=== PATIENT | female | born 1945 | race Caucasian/White ===

== ENCOUNTER → 2018-05-16 13:06 | Outpatient (CLI) | payer MEDICARE, BC, SELFPAY | PROVIDERS: Family Provider Internal Medicine; PCP Internal Medicine; Visit Provider Internal Medicine | DX: G47.10 Hypersomnia, unspecified (principal); R06.81 Apnea, not elsewhere classified; R06.83 Snoring | CPT/HCPCS: 95810 ==

== ENCOUNTER → 2018-06-28 21:02 | Outpatient (CLI) | payer MEDICARE, BC, SELFPAY | PROVIDERS: Family Provider Internal Medicine; PCP Internal Medicine; Visit Provider Internal Medicine | DX: G47.33 Obstructive sleep apnea (adult) (pediatric) (principal) | CPT/HCPCS: 95811 ==

== ENCOUNTER → 2019-01-16 09:55 | Outpatient (CLI) | payer MEDICARE, BC, SELFPAY ==
--- NOTE | 2019-01-16 14:34 | PFTCOMP ---
COMPLETE PULMONARY FUNCTION TEST INTERPRETATION Brief HPI: Patient is a 73 year old female, currently under the care of Dr. Sutton, who presents to [facility] for complete pulmonary function tests secondary to diagnosis of asthma. Respiratory therapist reports good effort and reproducible results. Interpretation: Forced expiration spirometry shows no large airways obstructive ventilatory defect with an FEV1 of 89% predicted. There is no significant bronchodilator response by strict ATS criteria. Spirograms are of good quality and plateau normally. The respiratory flow volume loop shows a normal pattern. Lung volumes by body plethysmography show a normal total lung capacity at 5.06 L, 97% predicted. All other lung volumes are within normal limits. Diffusion capacity by carbon monoxide is normal at 85% predicted. The airway resistance is elevated. No previous pulmonary function tests were available for review. Impression: These pulmonary function tests are within normal limits.
== END ==
PROVIDERS: Family Provider Internal Medicine; PCP Internal Medicine; Referring Provider Allergy & Immunology; Visit Provider Allergy & Immunology
DX: J45.40 Moderate persistent asthma, uncomplicated (principal)
CPT/HCPCS: 94060; 94726; 94729

== ENCOUNTER → 2020-02-05 13:27 | Outpatient (CLI) | payer MEDICARE, BC, SELFPAY | PROVIDERS: PCP Internal Medicine; Referring Provider Dermatology; Visit Provider Dermatology | DX: L71.8 Other rosacea (principal); L20.89 Other atopic dermatitis | CPT/HCPCS: 87070; 87077; 87186; 87205 ==

== ENCOUNTER → 2021-09-30 13:03 | Outpatient (CLI) | payer MEDICARE, BC, SELFPAY ==
[2021-09-30 14:19] LABS: T4 Free Direct 0.82 ng/dL (0.76-1.46); Thyroid Stim Hormone (TSH) 2.31 uIU/mL (0.358-3.74)
[2021-10-05 15:20] LABS: Acetylcholine Receptor Binding < 0.03 nmol/L (0.00-0.24)
== END ==
PROVIDERS: PCP Internal Medicine; Referring Provider Ophthalmology; Visit Provider Ophthalmology
DX: H50.00 Unspecified esotropia (principal); H02.402 Unspecified ptosis of left eyelid; H10.45 Other chronic allergic conjunctivitis; H43.813 Vitreous degeneration, bilateral; Z96.1 Presence of intraocular lens
CPT/HCPCS: 36415; 84238; 84439; 84443

== ENCOUNTER 2022-06-23 10:20 | Inpatient (IN) | payer MEDICARE, BC, SELFPAY ==
[2022-06-23 10:21] VITALS: BP 168/116; PULSE 67; RESP 14; TEMP 36.6; O2SAT 98; BMI 26.8
--- NOTE | 2022-06-23 10:30 | US_ITS ---
STUDY: ABDOMINAL ULTRASOUND - RIGHT UPPER QUADRANT REASON FOR VISIT: Female, 76 years old . Right upper quadrant pain. TECHNIQUE: Ultrasound evaluation of the right upper quadrant was performed with real-time and static merrill-scale imaging. TECHNICAL QUALITY: Adequate. COMPARISON: None. FINDINGS: Liver: The liver measures 16.4 cm. There is normal echogenicity of the liver. The bile ducts are within normal limits. There is hepatic color flow. The direction of portal flow is hepatopetal. There is no demonstrated mass lesion. Gallbladder: There is a mildly distended gallbladder. The gallbladder wall measures 3 mm. There is a positive sonographic Carroll''s sign. There is no pericholecystic fluid. There are multiple echogenic structures within the gallbladder, consistent with multiple gallstones. Sludge is seen within the gallbladder lumen. Common Bile Duct (C.B.D.): The common bile duct measures 6 mm. Pancreas: Normal size of the head, body and tail of the pancreas. There is normal echogenicity of the pancreas. There is no demonstrated pancreatic mass or cyst. Right Kidney: Normal size of the right kidney. The right kidney measures 13.7 cm x 5.5 cm x 4.7 cm. Normal renal cortex. The right cortex measures 1.4 cm. There is a 1.1 cm x 1 cm x 0.9 cm cyst in the midpole. There is no right hydronephrosis. US/Gallbladder IMPRESSION: Mildly dilated gallbladder containing multiple gallstones and sludge. Electronically Signed: Bird Robin MD at 11:38 EDT ,
--- NOTE | 2022-06-23 10:32 | ED.VIS.GI ---
HPI HPI - GI History of Present Illness Chief Complaint: Abd Pain Informant: patient Abdominal Pain/Flank Pain Onset: Today Narrative Narrative: Right upper abdominal pain waking her at 2:30 AM. Nausea without vomiting. No fevers. No urinary symptoms. Patient ate pasta last night for dinner. Did have loose stool afterwards nonbloody. She states is intermittent right upper quadrant pain, she gets diarrhea with certain foods in the past. Has not had her gallbladder evaluated previously. History of tubal ligation. History of duodenal ulcer on Prilosec. This was years ago. Pain is 5-6 out of 10. Took Tylenol with no relief. Tried drinking Benadryl with no relief. Drink tea also no worsening relieving symptoms. [facility] Medical History (Updated 06/23/22 @ 16:[address] Herminio Hernandez DO) Acne rosacea Allergic rhinitis Asthma Daytime sleepiness Depression Dysthymic disorder External hemorrhoids GERD (gastroesophageal reflux disease) Internal hemorrhoids Menieres disease Sleep apnea Snoring Vitamin D deficiency Witnessed episode of apnea Home Medications albuterol sulfate 90 mcg/actuation aerosol inhaler (Proventil HFA) 2 puff inhalation Q4H PRN SOB 06/15/18 [History Last Taken Unknown] azelastine 137 mcg (0.1 %) nasal spray aerosol 1 spray intranasal BID 06/15/18 [History Last Taken Unknown] bupropion HCl 150 mg tablet,12 hr sustained-release (Wellbutrin SR) 150 mg PO QDAY 06/15/18 [History Last Taken Unknown] clindamycin phosphate 1 % topical gel, once daily (Clindagel) 1 applic topical BID 06/15/18 [History Last Taken Unknown] clobetasol 0.05 % topical cream (Temovate) 1 applic topical BID PRN Itching 06/15/18 [History Last Taken Unknown] conjugated estrogens 0.625 mg/gram vaginal cream (Premarin) vaginal .QOD 06/15/18 [History Last Taken Unknown] dextromethorphan polistirex 30 mg/5 mL oral susp ext.release 12hr (Delsym 12 hour) 10 ml PO Q12H 06/15/18 [History Last Taken Unknown] diclofenac sodium 1 % topical gel (Voltaren) 2 g topical .qid PRN Itching 06/15/18 [History Last Taken Unknown] epinephrine 0.3 mg/0.3 mL injection, auto-injector (EpiPen) 0.3 mg IM Q10-15M PRN Allergic Reaction 06/15/18 [History Last Taken Unknown] fexofenadine 180 mg tablet (Vivi Allergy) 180 mg PO QDAY 06/15/18 [History Last Taken Unknown] fluoxetine 20 mg capsule (Prozac) 40 mg PO QDAY 06/15/18 [History Last Taken Unknown] fluticasone propionate 50 mcg/actuation nasal spray,suspension (Flonase Allergy Relief) 2 spray intranasal QDAY 06/15/18 [History Last Taken Unknown] meclizine 12.5 mg tablet 12.5 mg PO TID PRN Dizziness 06/15/18 [History Last Taken Unknown] mometasone-formoterol HFA 100 mcg-5 mcg/actuation aerosol inhaler (Dulera) 2 puff inhalation Q12H 06/15/18 [History Last Taken Unknown] omeprazole 20 mg capsule,delayed release 20 mg PO QDAY 06/15/18 [History Last Taken Unknown] phenazopyridine 200 mg tablet (Pyridium) 200 mg PO TID PRN URINARY SYMPTOMS 06/15/18 [History Last Taken Unknown] promethazine 6.25 mg/5 mL oral syrup 6.25 mg PO Q6H PRN Nausea 06/15/18 [History Last Taken Unknown] trazodone 50 mg tablet 50 mg PO QHS 06/15/18 [History Last Taken Unknown] triamterene 75 mg-hydrochlorothiazide 50 mg tablet (Maxzide) 1 tab PO QDAY 06/15/18 [History Last Taken Unknown] olopatadine 0.1 % eye drops 1 drp ophthalmic (eye) BID 06/20/18 [History Last Taken Unknown] mirabegron 50 mg tablet,extended release 24 hr (Myrbetriq) 50 mg PO DAILY 06/23/22 [History Last Taken Unknown] Allergy/AdvReac Type Severity Reaction Status Date / Time seasonal allergies Allergy Mild Sneezing Uncoded 06/23/22 10:22 tobacco Allergy Mild burning Uncoded 06/23/22 10:22 lungs Family History Other No family history of disorders Surgical History benign breast lump, impacted milk gland H/O tubal ligation Social History household members: spouse housing: house current occupational status: retired pets and animals: Yes pets and animals: cat(s) Smoking Status: Former smoker quit date: 11/28/71 pack-years: 8 second hand exposure: No alcohol intake: current substance use type: other ROS ROS ED Constitutional Constitutional ED: Denies chills, fever(s) or sweats Eyes Eyes: Denies change in vision ENT ENT ED: Denies dysphagia or sore throat Cardiovascular Cardiovascular: Denies chest pain, leg edema, palpitations or racing heartbeat Respiratory/Chest Respiratory/Chest: Denies cough, dyspnea or dyspnea on exertion Gastrointestinal Gastrointestinal: Reports abdominal pain, diarrhea and nausea; Denies vomiting Genitourinary Genitourinary ED: Denies dysuria, hematuria or urinary frequency Musculoskeletal Musculoskeletal: Denies back pain, extremity pain or neck pain Integumentary Denies rash or wounds Neurologic Neurologic: Denies headache(s), paresthesias or weakness EXAM Physical Exam Const Vital Signs: 06/23/22 10:21 06/23/22 12:32 Temperature 97.8 F 97.6 F L Temperature Source Temporal Oral Pulse Rate 67 88 Respiratory Rate 14 16 Blood Pressure 168/116 H 139/84 H Blood Pressure Mean 133 102 Pulse Ox 98 97 Oxygen Delivery Method Room Air Room Air Positive well nourished and well developed General Appearance ED: well developed and NAD HEENT Reports moist mucous membranes normocephalic and atraumatic Eyes PERRL, EOMs intact bilaterally and conjunctivae normal General Eye ED: Yes normal appearance of both eyes Neck no lymphadenopathy and supple General: Negative for tenderness Chest Wall Chest: Negative for tenderness Resp normal respiratory effort and normal air movement Effort and Inspection: symmetric chest movement; Negative for respiratory distress Cardio regular rate, regular rhythm and no murmurs Peripheral Pulses: pulses 2+ throughout GI normal to inspection, nondistended, normoactive bowel sounds GI Narrative: Tender deep palpation right upper quadrant, there is no rash, is no guarding or rebound. Negative McBurney's tenderness. Palpation: Negative for guarding or rebound tenderness present Back/Spine no CVA tenderness and no thoracic nor lumbar tenderness Extremity normal to inspection General Extremety ED: Negative for edema or tenderness General Extremity: Negative for edema Neuro oriented x3 and no sensory deficits noted Sensorium / Orientation: awake and alert Skin no rashes or lesions noted and no wounds MDM MDM MDM Narrative Medical decision making narrative: AbdominalNontoxic and tenderness tenderness right upper quadrant without guarding. Labs urine and right upper quadrant ultrasound be ordered. She will be treated with Zofran and morphine. 1100: Abdominal labs all normal with normal lipase and LFTs white count 7.0. Urine with 25 leukocytes. She has no symptoms. Awaiting ultrasound. Ultrasound results notes mild distended gallbladder with sludge and stones. Reevaluation symptoms probably have still there down to 5. Her history has been having intermittent colic symptoms worsening overnight. I discussed with on-call surgeon Dr. Nath, will admit to his service for inpatient management and likely cholecystectomy. This discussed with the patient who understands and agrees with plan. Lab Data Attestation: I reviewed the patient's lab results. Labs: Laboratory Results - last 24 hr 06/23/22 06/23/22 06/23/22 10:31 10:31 10:38 WBC 7.0 RBC 4.68 Hgb 15.5 H Hct 45.2 MCV 96.6 MCH 33.1 H MCHC 34.3 RDW Std Deviation 49.2 H RDW Coeff of Yovani 13.8 Plt Count 322 MPV 10.2 Immature Gran % (Auto) 0.300 Neut % (Auto) 73.2 H Lymph % (Auto) 18.2 L Oliver % (Auto) 6.4 Eos % (Auto) 1.0 Baso % (Auto) 0.9 Absolute Neuts (auto) 5.2 Absolute Lymphs (auto) 1.28 Nucleated RBC % 0 Sodium 136 Potassium 3.6 Chloride 100 Carbon Dioxide 32.0 Anion Gap 4 L BUN 12 Creatinine 0.75 Estim Creat Clear Calc 46.20 Est GFR (MDRD) Af Amer 97 Est GFR (MDRD) Non-Af 81 BUN/Creatinine Ratio 16.1 Glucose 111 H Calcium 9.2 Total Bilirubin 0.80 Direct Bilirubin 0.23 AST 22 ALT 35 Alkaline Phosphatase 68 Total Protein 7.7 Albumin 4.1 Globulin 3.6 Lipase 65 L Urine Color Yellow Urine Clarity Sl. Cloudy Urine pH 7.0 Ur Specific Russell 1.010 Urine Protein Negative Urine Glucose (UA) Normal Urine Ketones Negative Urine Occult Blood Negative Urine Nitrite Negative Urine Bilirubin Negative Urine Urobilinogen Normal Ur Leukocyte Esterase 25 H Urine RBC 0 SEEN Urine WBC 0-5 SEEN Ur Squamous Epith Cells 0-5 SEEN Urine Bacteria 0 SEEN Urine Mucus 0 SEEN Radiography Diagnostic Testing: Clinical Impression(s) from Imaging Studies Gallbladder Ultrasound 06/23/22 10:30 IMPRESSION: Mildly dilated gallbladder containing multiple gallstones and sludge. Electronically Signed: Bird Robin MD at 11:38 EDT , Discharge Plan Dx/Rx/DC Orders Clinical Impression: Acute cholecystitis, Biliary colic, Cholelithiasis, Sludge in gallbladder, Abdominal pain Disposition Disposition: Acute Care [facility] Discharge Date/Time: 06/23/22 13:31
[2022-06-23 10:43] LABS: Absolute Lymphocyte Count 1.28 X10^3/uL (0.83-4.51); Absolute Neutrophil Count 5.2 X10^3/uL (2.0-7.7); Basophil# 0.06 X10^3/uL; Basophil% 0.9 % (0-1); Eosinophil# 0.07 X10^3/uL; Hematocrit 45.2 % (37-47); Hemoglobin 15.5 g/dL (12.0-15.0); Lymphocyte # 1.28 X10^3/ul (0.83-4.51); Lymphocyte % 18.2 % (19-41); Mean Corp Hgb Conc 34.3 g/dL (32-36); Mean Corpuscular Hgb 33.1 pg (27.0-32.0); Mean Corpuscular Volume 96.6 fL (81-99); Mean Platelet Vol. 10.2 fl (6.2-12.0); Monocyte# 0.45 X10^3/uL; Monocyte% 6.4 % (0-10); NRBC Flagged by Analyzer 0 % (0-5); Neutrophil # 5.16 X10^3/uL (2.7-7.7); Neutrophil % 73.2 % (47-70); Platelet Count 322 K/mm3 (150-450); RBC Distribution Width CV 13.8 % (11.6-14.6); RBC Distribution Width SD 49.2 fl (35.1-43.9); Red Blood Count 4.68 M/mm3 (4.2-5.4)
[2022-06-23 10:43] LABS: Bacteria 0 SEEN /hpf (None Seen); Mucous, Urine 0 SEEN /hpf (<or=2+); Red Blood Cells-Urine 0 SEEN /hpf (0-5)
[2022-06-23 10:44] LABS: Color, Urine Yellow (Yellow); Glucose, Dipstick Normal (Normal); Ketone-Dipstick Negative (Negative); Leukocyte Esterase-Dipstick 25 /ul (Negative); Nitrite-Dipstick Negative (Negative); Occult Blood-Urine Negative /ul (Negative); Protein-Dipstick Negative (Negative); Urine Bilirubin Dipstick Negative (Negative); Urine Clarity Sl. Cloudy (Clear); Urine Urobilinogen Normal (Normal)
[2022-06-23] MEDS: Ondansetron 4 MG/2 ML Vial IV ×3 (10:46→22:12)
[2022-06-23] MEDS: Morphine 2 MG/ML Syringe IV ×3 (10:46→18:30)
[2022-06-23] MEDS: 0.9% Normal Saline 1,000 ML 125 ML IV (10:48)
[2022-06-23 10:51] LABS: Squamous Epithelial Cells - UA 0-5 SEEN /hpf (5-10); White Blood Cells 0-5 SEEN /hpf (0-5)
[2022-06-23 10:59] LABS: AST(SGOT) 22 U/L (15-37); Alanine Aminotransfer ALT/SGPT 35 U/L (13-56); Albumin, Serum 4.1 g/dL (3.2-5.0); Alkaline Phosphatase 68 U/L (45-117); Anion Gap 4 (5-15); BUN 12 mg/dL (7-18); BUN/Creat Ratio 16.1 RATIO (10-20); Bilirubin, Direct 0.23 mg/dL (0.00-0.30); Calcium,Total 9.2 mg/dL (8.5-10.1); Chloride 100 mmol/L (98-107); Creatinine, Serum 0.75 mg/dL (0.55-1.02); EST Glomerular Filtration Rate 81 mL/min (>60); Est Glom Filt Rate - Afr Amer 97 mL/min (>60); Globulin 3.6 g/dL (2.2-4.2); Glucose 111 mg/dL (74-106); Lipase 65 U/L (73-393); Potassium 3.6 mmol/L (3.5-5.1); Protein, Total 7.7 g/dL (6.4-8.2); Sodium Level 136 mmol/L (136-145)
[2022-06-23 12:32] VITALS: BP 139/84; PULSE 88; RESP 16; TEMP 36.4; O2SAT 97
--- NOTE | 2022-06-23 12:56 | NURSING ---
305 MED SURG [facility] BILIARY COLIC, CHOLETHIASIS W SLUDGE, RUQ PAIN
--- NOTE | 2022-06-23 13:05 | EKGRS_ITS ---
Test Reason : RYTHM CHANGE Blood Pressure : / mmHG Vent. Rate : 065 BPM Atrial Rate : 065 BPM P-R Int : 162 ms QRS Dur : 086 ms QT Int : 426 ms P-R-T Axes : -19 -13 012 degrees QTc Int : 443 ms Sinus rhythm with frequent Premature ventricular complexes Otherwise normal ECG When compared with ECG of 24-JUN-2022 15:11, MANUAL COMPARISON REQUIRED, DATA IS UNCONFIRMED Confirmed by JAZZ EDMONDSON, YENNY ([id number]), material expeditor GEOVANNA FLORES ([id number]) on 06/28/2022 11:34:24 AM Referred By: GREGG Confirmed By:LEO SCHULZ MD
--- NOTE | 2022-06-23 13:11 | HP.PCM_ITS ---
HPI - General General Date of Admission: 06/23/22 Date of Service: 06/23/22 Chief Complaint: Right upper quadrant abdominal pain HPI Narrative DEIDRE STONE, is a 76 F who presents with worsening abdominal pain x 1 day. Patient states she has had intermittent RUQ abdominal discomfort for 4-5 years. She denies ever having a gallbladder work up. She notes a few months ago her stools turned white. Patient notes last night for dinner she had pasta with eggs and parmesan cheese. She also had a salad with dressing around 6 pm. She noted about 45 minutes to an 1 hour later she had diarrhea after eating. She noted tenderness of the right upper quadrant and thought this was gas pain. She went to bed and was woke up at 02:20 AM with severe right upper quadrant abdominal pain radiating into her back. She noted some nausea. She denies vomiting. She notes for the last year she has had a 25 pound intentional weight loss which has improved her symptoms. She notes a previous right inguinal hernia repair without mesh and tubal ligation in the 's. She denies any cardiac history. No previous myocardial infarction, stroke, blood clots. She notes a history of sleep apnea and uses CPAP machine. She also has a history of asthma. She follows with Dr. Sutton. In the ED, a RUQ u/s was performed demonstrating mildly dilated gallbladder containing multiple gallstones and sludge. Positive Carroll's sign. No pericholecystic fluid. WBC 7.0, Hgb 15.5, Hct 45.2 and platelets 322. CMP unremarkable. [facility] Medical History (Updated 06/23/22 @ 13:30 by Aura HOFFMAN PAMaryellenC) Acne rosacea Allergic rhinitis Asthma Daytime sleepiness Depression Dysthymic disorder External hemorrhoids GERD (gastroesophageal reflux disease) Internal hemorrhoids Menieres disease Sleep apnea Snoring Vitamin D deficiency Witnessed episode of apnea Home Medications albuterol sulfate 90 mcg/actuation aerosol inhaler (Proventil HFA) 2 puff inhalation Q4H PRN SOB 06/15/18 [History Last Taken Unknown] azelastine 137 mcg (0.1 %) nasal spray aerosol 1 spray intranasal BID 06/15/18 [History Last Taken Unknown] bupropion HCl 150 mg tablet,12 hr sustained-release (Wellbutrin SR) 150 mg PO QDAY 06/15/18 [History Last Taken Unknown] clindamycin phosphate 1 % topical gel, once daily (Clindagel) 1 applic topical BID 06/15/18 [History Last Taken Unknown] clobetasol 0.05 % topical cream (Temovate) 1 applic topical BID PRN Itching 06/15/18 [History Last Taken Unknown] conjugated estrogens 0.625 mg/gram vaginal cream (Premarin) vaginal .QOD 06/15/18 [History Last Taken Unknown] dextromethorphan polistirex 30 mg/5 mL oral susp ext.release 12hr (Delsym 12 hour) 10 ml PO Q12H 06/15/18 [History Last Taken Unknown] diclofenac sodium 1 % topical gel (Voltaren) 2 g topical .qid PRN Itching 06/15/18 [History Last Taken Unknown] epinephrine 0.3 mg/0.3 mL injection, auto-injector (EpiPen) 0.3 mg IM Q10-15M PRN Allergic Reaction 06/15/18 [History Last Taken Unknown] fexofenadine 180 mg tablet (Vivi Allergy) 180 mg PO QDAY 06/15/18 [History Last Taken Unknown] fluoxetine 20 mg capsule (Prozac) 40 mg PO QDAY 06/15/18 [History Last Taken Unknown] fluticasone propionate 50 mcg/actuation nasal spray,suspension (Flonase Allergy Relief) 2 spray intranasal QDAY 06/15/18 [History Last Taken Unknown] meclizine 12.5 mg tablet 12.5 mg PO TID PRN Dizziness 06/15/18 [History Last Taken Unknown] mometasone-formoterol HFA 100 mcg-5 mcg/actuation aerosol inhaler (Dulera) 2 puff inhalation Q12H 06/15/18 [History Last Taken Unknown] omeprazole 20 mg capsule,delayed release 20 mg PO QDAY 06/15/18 [History Last Taken Unknown] phenazopyridine 200 mg tablet (Pyridium) 200 mg PO TID PRN URINARY SYMPTOMS 06/15/18 [History Last Taken Unknown] promethazine 6.25 mg/5 mL oral syrup 6.25 mg PO Q6H PRN Nausea 06/15/18 [History Last Taken Unknown] trazodone 50 mg tablet 50 mg PO QHS 06/15/18 [History Last Taken Unknown] triamterene 75 mg-hydrochlorothiazide 50 mg tablet (Maxzide) 1 tab PO QDAY 06/15/18 [History Last Taken Unknown] olopatadine 0.1 % eye drops 1 drp ophthalmic (eye) BID 06/20/18 [History Last Taken Unknown] mirabegron 50 mg tablet,extended release 24 hr (Myrbetriq) 50 mg PO DAILY 06/23/22 [History Last Taken Unknown] Allergy/AdvReac Type Severity Reaction Status Date / Time seasonal allergies Allergy Mild Sneezing Uncoded 06/23/22 10:22 tobacco Allergy Mild burning Uncoded 06/23/22 10:22 lungs Family History Other No family history of disorders Surgical History benign breast lump, impacted milk gland H/O tubal ligation Social History household members: spouse housing: house current occupational status: retired pets and animals: Yes pets and animals: cat(s) Smoking Status: Former smoker quit date: 11/28/71 pack-years: 8 second hand exposure: No alcohol intake: current substance use type: other ROS Constitutional Constitutional: Reports systems reviewed and no addt'l complaints, except as documented Eyes Eyes: Reports systems reviewed and no addt'l complaints, except as documented ENT HEENT: Reports systems reviewed and no addt'l complaints, except as documented Cardiovascular Cardiovascular: Reports systems reviewed and no addt'l complaints, except as documented Respiratory/Chest Respiratory/Chest: Reports systems reviewed and no addt'l complaints, except as documented Gastrointestinal Gastrointestinal: Reports systems reviewed and no addt'l complaints, except as documented Genitourinary Genitourinary: Reports systems reviewed and no addt'l complaints, except as documented Musculoskeletal Musculoskeletal: Reports systems reviewed and no addt'l complaints, except as documented Integumentary Integumentary: Reports systems reviewed and no addt'l complaints, except as documented Neurologic Neurologic: Reports systems reviewed and no addt'l complaints, except as documented Psychiatric Psychiatric: Reports systems reviewed and no addt'l complaints, except as documented Endocrine Endocrinology: Reports systems reviewed and no addt'l complaints, except as documented Hematologic/Lymphatic Hematologic/Lymphatic: Reports systems reviewed and no addt'l complaints, except as documented Allergic/Immunologic Allergic/Immunologic: Reports systems reviewed and no addt'l complaints, except as documented Vital Signs Vital Signs Vital Signs: 06/23/22 10:21 06/23/22 12:32 Temperature 97.8 F 97.6 F L Temperature Source Temporal Oral Pulse Rate 67 88 Respiratory Rate 14 16 Blood Pressure 168/116 H 139/84 H Blood Pressure Mean 133 102 Pulse Ox 98 97 Oxygen Delivery Method Room Air Room Air Weight Weight: 166 lb Body Mass Index (BMI) 26.8 Physical Exam Const alert, oriented x3 and no apparent distress HEENT normocephalic Eyes PERRL Neck full ROM Lymph Lymphatic: no lymphadenopathy noted Resp normal respiratory effort and normal air movement Effort and Inspection: able to speak in complete sentences Cardio regular rate and regular rhythm Cardio Narrative: Occasional PVC auscultated GI soft to palpation Inspection: central obesity Auscultation: hypoactive bowel sounds Palpation: soft, tender RUQ and Carroll's sign and guarding RUQ no CVA tenderness Back/Spine no CVA tenderness Extremity normal to inspection Skin no rashes or lesions noted Neuro no focal motor deficits and no sensory deficits noted Psych mental status grossly normal and thought process normal Results Lab / Micro Data Result Diagrams: 06/23/22 10:31 06/23/22 10:31 Labs: Laboratory Results - last 24 hr 06/23/22 10:31: Sodium 136, Potassium 3.6, Chloride 100, Carbon Dioxide 32.0, Anion Gap 4 L, BUN 12, Creatinine 0.75, Estim Creat Clear Calc 46.20, Est GFR (MDRD) Af Amer 97, Est GFR (MDRD) Non-Af 81, BUN/Creatinine Ratio 16.1, Glucose 111 H, Calcium 9.2, Total Bilirubin 0.80, Direct Bilirubin 0.23, AST 22, ALT 35, Alkaline Phosphatase 68, Total Protein 7.7, Albumin 4.1, Globulin 3.6, Lipase 65 L 06/23/22 10:31: WBC 7.0, RBC 4.68, Hgb 15.5 H, Hct 45.2, MCV 96.6, MCH 33.1 H, MCHC 34.3, RDW Std Deviation 49.2 H, RDW Coeff of Yovani 13.8, Plt Count 322, MPV 10.2, Immature Gran % (Auto) 0.300, Neut % (Auto) 73.2 H, Lymph % (Auto) 18.2 L, [place] % (Auto) 6.4, Eos % (Auto) 1.0, Baso % (Auto) 0.9, Absolute Neuts (auto) 5.2, Absolute Lymphs (auto) 1.28, Nucleated RBC % 0 06/23/22 10:38: Urine Color Yellow, Urine Clarity Sl. Cloudy, Urine pH 7.0, Ur Specific [place] 1.010, Urine Protein Negative, Urine Glucose (UA) Normal, Urine Ketones Negative, Urine Occult Blood Negative, Urine Nitrite Negative, Urine Bilirubin Negative, Urine Urobilinogen Normal, Ur Leukocyte Esterase 25 H, Urine RBC 0 SEEN, Urine WBC 0-5 SEEN, Ur Squamous Epith Cells 0-5 SEEN, Urine Bacteria 0 SEEN, Urine Mucus 0 SEEN Radiology Impression Gallbladder Ultrasound 06/23/22 10:30 IMPRESSION: Mildly dilated gallbladder containing multiple gallstones and sludge. Electronically Signed: Bird Robin MD at 11:38 EDT , Assessment & Plan Assessment/Plan (1) Acute cholecystitis: PLAN: I am seeing this patient in conjunction with Dr. Nath. He will independently evaluate this patient. Plan to admit patient to med/surg floor. Plan to start clear liquids, IV antibiotics and continue IV fluids. NPO after midnight. Obtain EKG pre-op. Dr. Nath will plan to perform a laparoscopic cholecystectomy with IOC tomorrow, 06/24. Procedure details, risks and benefits have been explained to the patient. Patient's daughter is Thor, charge nurse on PCU. Patient, and daughter have had the opportunity to ask and have questions answered. Patient verbally understands and agrees with the proposed plan. Thank you for allowing us to participate in this patient's care. Charges/Coding Visit Charges Inpatient E&M: 36194 Init Hosp L2
[2022-06-23 13:40] VITALS: BP 146/80; PULSE 58; RESP 16; TEMP 36.7; O2SAT 97
[2022-06-23 13:51] VITALS: BMI 28.0
[2022-06-23] MEDS: 0.9% Normal Saline 1,000 ML 100 ML IV (14:33)
[2022-06-23] MEDS: oxyCODONE 5 MG Tablet PO (20:15)
[2022-06-23 20:32] VITALS: BP 132/74; PULSE 62; RESP 14; TEMP 36.7; O2SAT 99
[2022-06-23] MEDS: traZODone 50 MG Tablet PO (22:02)
[2022-06-24] VITALS (13 sets, daily range): BP systolic 118–155; BP diastolic 58–80; PULSE 57–77; RESP 12–18; TEMP 36.5–37.6; O2SAT 93–97
[2022-06-24] MEDS: 0.9% Normal Saline 1,000 ML 100 ML IV ×2 (00:08→10:26)
[2022-06-24] MEDS: oxyCODONE 5 MG Tablet PO ×3 (00:10→21:59)
[2022-06-24 06:46] LABS: Absolute Lymphocyte Count 1.12 X10^3/uL (0.83-4.51); Absolute Neutrophil Count 4.3 X10^3/uL (2.0-7.7); Basophil# 0.04 X10^3/uL; Basophil% 0.6 % (0-1); Eosinophil# 0.14 X10^3/uL; Eosinophils% 2.2 % (0-5); Hemoglobin 13.7 g/dL (12.0-15.0); Lymphocyte # 1.12 X10^3/ul (0.83-4.51); Mean Corp Hgb Conc 34.3 g/dL (32-36); Mean Corpuscular Hgb 32.5 pg (27.0-32.0); Mean Corpuscular Volume 94.8 fL (81-99); Mean Platelet Vol. 10.1 fl (6.2-12.0); Monocyte# 0.57 X10^3/uL; Monocyte% 9.1 % (0-10); NRBC Flagged by Analyzer 0 % (0-5); Neutrophil # 4.34 X10^3/uL (2.7-7.7); Neutrophil % 69.8 % (47-70); Platelet Count 281 K/mm3 (150-450); RBC Distribution Width CV 13.6 % (11.6-14.6); RBC Distribution Width SD 47.5 fl (35.1-43.9); Red Blood Count 4.22 M/mm3 (4.2-5.4); White Blood Count 6.2 K/mm3 (4.4-11.0)
[2022-06-24] MEDS: Budesonide Respules 0.5 MG/2 ML AMPUL.NEB. INHALATION ×2 (07:06→19:38)
[2022-06-24 07:30] LABS: AST(SGOT) 17 U/L (15-37); Alanine Aminotransfer ALT/SGPT 26 U/L (13-56); Albumin, Serum 3.2 g/dL (3.2-5.0); Alkaline Phosphatase 52 U/L (45-117); Anion Gap 6 (5-15); BUN 6 mg/dL (7-18); BUN/Creat Ratio 9.2 RATIO (10-20); Calcium,Total 8.5 mg/dL (8.5-10.1); Chloride 104 mmol/L (98-107); Creatinine, Serum 0.65 mg/dL (0.55-1.02); EST Glomerular Filtration Rate 94 mL/min (>60); Est Glom Filt Rate - Afr Amer 114 mL/min (>60); Globulin 3.1 g/dL (2.2-4.2); Glucose 114 mg/dL (74-106); Potassium 3.6 mmol/L (3.5-5.1); Protein, Total 6.3 g/dL (6.4-8.2); Sodium Level 138 mmol/L (136-145)
[2022-06-24] MEDS: Morphine 2 MG/ML Syringe IV ×2 (09:15→12:24)
[2022-06-24] MEDS: 0.9% Saline Lock 10 ML Syringe IV ×2 (09:16→12:24)
--- NOTE | 2022-06-24 11:30 | CASEMGMT ---
GRACIE BECRERA Assessment: Face to Face with pt for initial transition planning/care coordination assessment. GRACIE BECERRA introduced self and role at [facility], pt voices understanding and consents to assessment. Pt is A/O x4 and answers all questions appropriately at this time. Pt lying in bed in no distress. Care providers, pharmacy, and demographics verified/updated. Admitting Dx: biliary colic PCP: William Specialists:verna Sutton; dimas Sheppard; elijah Dillon Preferred Pharmacy: [facility] Retail Insurance: [employer] Prescription Benefit: yes LW/HPOA: Pt states she has a LW/DPOA and her DPOA is her , Lalit Dickens. She is aware this is not on file at [facility] and she may bring in to be scanned into her chart. LNOK: Lalit Dickens, ; Thor Vaughan, dtr Living Arrangements: Pt lives with in a two story house with 1 step to enter without rail. Pt reports she is I in ADL's and denies concerns at home. Transportation: Pt drives self and denies concerns with transportation. DME/HHC/SNF: Pt has a CPAP at home through [facility]. She has brab bars in her bathroom. Pt also has a shower chair and hiking stick. Pt has a FWW but does not use. Pt denies hx of HHC of SNF stays. Pt states no concerns with going home at time of dc. Pt states no further concerns/needs. CM to follow. Advised pt to ask CM if any further question/concerns/needs arise, voices understanding. Pt Goal: Home Plan: Home
--- NOTE | 2022-06-24 13:50 | GALL_PTH ---
PATIENT: DEIDRE STONE LOC: MS3 U#:[id number] AGE/SX: 76/F ROOM: IL305 RE06/24/[address]: Dr. Arnoldo Nath MD : [id number] BED: 1 DIS: 06/25/2022 SPEC #: [id number] RECD: 06/25/22 11:25 STATUS: TERRANCE FERNÁNDEZ #: [id number] MANUEL: 06/24/22 13:[address]: Arnoldo Nath DEPT: SURGICAL PATHOLOGY RECD BY: Emerita hTakur ENTERED: 06/25/22 11:46 SP TYPE: CHERRIE HUMMEL DR: Dr. Iliana Thomas MD Tissues: Gallbladder, NOS Procedures: Surgery Specimen Level III HEADER OPERATION: Laparoscopic cholecystectomy with IOC PRE-OP DIAGNOSIS: Acute cholecystitis TISSUE SUBMITTED: Gallbladder and contents MICROSCOPIC DIAGNOSIS Gallbladder and contents, cholecystectomy: Chronic cholecystitis, cholelithiasis and cholesterolosis. A minute benign pericystic lymph node. DIANNA:conor 06/28/2022 MICROSCOPIC DESCRIPTION Slides are reviewed. GROSS DESCRIPTION Received is one container labeled with the patient's name and designated gallbladder and contents. The specimen consists of a gallbladder measuring 11 cm in length and up to 4.5 cm in diameter. The external surface is pink-rich, smooth and glistening for the most part. Focally it is granular, hemorrhagic and contains cautery artifact. The gallbladder contains green-yellow mucoid bile and multiple, mulberry, orange stones measuring in aggregate 5 x 4 x 1 cm and 0.1 to 0.6 cm in greatest dimension. The mucosa is bile-stained and without any mass lesions. The gallbladder wall measures up to 0.2 cm in thickness. The mucosa also shows several yellowish streaks consistent with cholesterolosis. Solar Project Manager sections from the gallbladder and the cystic duct are submitted in one cassette. / DIANNA:conor 06/25/2022 TC:3 CPT: 51736
--- NOTE | 2022-06-24 14:07 | RAD_ITS ---
STUDY: INTRAOPERATIVE CHOLANGIOGRAM. REASON FOR EXAM: Female, 76 years old. Gallstones. FLUOROSCOPY TIME (if supplied): ( 31 seconds ) minutes/seconds. A cine loop of 71 images was submitted. TECHNIQUE: Intraoperative arthrogram was performed by the surgeon. Imaging was submitted. COMPARISON: None. FINDINGS: The common bile duct is not dilated. No intraluminal filling defect is seen. There is free flow of contrast into the duodenum. RAD/Cholangiogram/ O R,Initial IMPRESSION: Unremarkable intraoperative cholangiogram. Electronically Signed: Bird Robin MD at 8:25 EDT ,
[2022-06-24] MEDS: Bupivacaine 0.25% 30 ML Vial (14:27)
--- NOTE | 2022-06-24 14:36 | PCM.OPRPT ---
Report of Operation Date of Procedure: 06/24/22 Pre-Operative Diagnosis: Acute cholecystitis Post-Operative Diagnosis: Acute cholecystitis Surgery/Procedure Performed:: Laparoscopic cholecystectomy with cholangiogram Specimen's removed: Gallbladder Description of Procedure: After obtaining informed consent patient was brought back to the operating room. General anesthesia was induced. The abdomen was prepped and draped in usual sterile fashion. A small midline incision was made superior to the umbilicus and deepened to the level of fascia. The fascia was elevated and incised. Next the peritoneum was elevated and incised in the same fashion. Finger sweep was performed and the [place] trocar was placed into the abdomen. The balloon was inflated. The abdomen was inflated to 15 mmHg. Next a camera was introduced into the abdomen and the abdomen was inspected. Next under direct visualization three 5-mm ports were placed one subxiphoid and 2 subcostal. Next the gallbladder was elevated and retracted toward the right shoulder. The peritoneum was stripped from the gallbladder. The infundibulum was located and retracted laterally. Next the triangle of Calot was dissected and the cystic duct and cystic artery were identified. Cholangiograms were performed. The Diaz clamp was used to clamp across the infundibulum and the catheter needle was inserted into the gallbladder. Under fluoroscopy contrast was instilled into the gallbladder and the common duct, cystic duct as well as proximal hepatic ducts were identified. There was good filling of the duodenum. There were no filling defects noted in the common bile duct. The clamp was removed as well as the needle and the infundibulum was grasped once more. Three hemolock clips were placed across the cystic duct. The cystic duct was then divided leaving 2 clips on the stump. The cystic artery was clipped and divided in the same fashion. The hook cautery was then used to take the gallbladder off of the gallbladder bed. Hemostasis was obtained. Gallbladder fossa was irrigated and no active bleeding or bile leakage was noted. Next the camera was introduced in the subxiphoid port. An Endopouch bag was placed through the umbilical port and the gallbladder was placed into it. The gallbladder was then removed through the umbilical incision. The camera was then reinserted through the umbilical port. The gallbladder fossa was inspected once more and noted to be hemostatic with no leaking bile. The abdomen was suctioned dry. The 5 mm ports were removed under direct visualization. The umbilical port was then removed and the air was removed from the abdomen. Next using an 0 Vicryl suture the umbilical fascia was closed in a [id number] fashion. The umbilical port site was irrigated local anesthetic was administered to all the incisions. All the incisions were closed with interrupted subcuticular 4-0 Monocryl sutures followed by Steri-Strips and dressings. The patient was awoken and taken to PACU in stable condition. Admit VTE Documentation VTE Mechan Device Prophylaxis: SCD's
--- NOTE | 2022-06-24 14:39 | DS.PCM_ITS ---
Providers Date of Admission: 06/24/22 Primary Care Physician: Dr. Iliana Thomas MD Reason For Visit: BILIARY COLIC Diagnosis Discharge Diagnosis (1) Acute cholecystitis: Status: Acute Code(s): K81.0 - Acute cholecystitis Plan: I am seeing this patient in conjunction with Dr. Nath. He will independent ly evaluate this patient. Plan to admit patient to med/surg floor. Plan to start clear liquids, IV antibiotics and continue IV fluids. NPO after midnight. Obtain EKG pre-op. Dr. Nath will plan to perform a laparoscopic cholecystectomy with IOC tomorrow, 06/24. Procedure details, risks and benefits have been explained to the patient. Patient's daughter is Thor, charge nurse on PCU. Patient, and daughter have had the opportunity to ask and have questions answered. Patient verbally understands and agrees with the proposed plan. Thank you for allowing us to participate in this patient's care. Medications at Discharge Home Medications albuterol sulfate 90 mcg/actuation aerosol inhaler (Proventil HFA) 2 puff inhalation Q4H PRN SOB 06/15/18 azelastine 137 mcg (0.1 %) nasal spray aerosol 1 spray intranasal BID 06/15/18 bupropion HCl 150 mg tablet,12 hr sustained-release (Wellbutrin SR) 150 mg PO QDAY 06/15/18 clindamycin phosphate 1 % topical gel, once daily (Clindagel) 1 applic topical BID 06/15/18 clobetasol 0.05 % topical cream (Temovate) 1 applic topical BID PRN Itching 06/15/18 conjugated estrogens 0.625 mg/gram vaginal cream (Premarin) vaginal .QOD 06/15/18 dextromethorphan polistirex 30 mg/5 mL oral susp ext.release 12hr (Delsym 12 hour) 10 ml PO Q12H 06/15/18 diclofenac sodium 1 % topical gel (Voltaren) 2 g topical .qid PRN Itching 06/15/18 epinephrine 0.3 mg/0.3 mL injection, auto-injector (EpiPen) 0.3 mg IM Q10-15M PRN Allergic Reaction 06/15/18 fexofenadine 180 mg tablet (Vivi Allergy) 180 mg PO QDAY 06/15/18 fluoxetine 20 mg capsule (Prozac) 40 mg PO QDAY 06/15/18 fluticasone propionate 50 mcg/actuation nasal spray,suspension (Flonase Allergy Relief) 2 spray intranasal QDAY 06/15/18 meclizine 12.5 mg tablet 12.5 mg PO TID PRN Dizziness 06/15/18 mometasone-formoterol HFA 100 mcg-5 mcg/actuation aerosol inhaler (Dulera) 2 puff inhalation Q12H 06/15/18 omeprazole 20 mg capsule,delayed release 20 mg PO QDAY 06/15/18 phenazopyridine 200 mg tablet (Pyridium) 200 mg PO TID PRN URINARY SYMPTOMS 06/15/18 promethazine 6.25 mg/5 mL oral syrup 6.25 mg PO Q6H PRN Nausea 06/15/18 trazodone 50 mg tablet 50 mg PO QHS 06/15/18 triamterene 75 mg-hydrochlorothiazide 50 mg tablet (Maxzide) 1 tab PO QDAY 06/15/18 olopatadine 0.1 % eye drops 1 drp ophthalmic (eye) BID 06/20/18 mirabegron 50 mg tablet,extended release 24 hr (Myrbetriq) 50 mg PO DAILY 06/23/22 acetaminophen 325 mg tablet (Tylenol) 650 mg PO Q6H PRN PRN Pain Score 1-10/Temp > 100.7 F #0 tabs 06/24/22 oxycodone 5 mg tablet 5 - 10 mg PO Q4H PRN PRN Pain Score 4-10/10 5 days #20 tabs 06/24/22 Hospital Course Operations cholecystecomy Procedures None Summary of Care Provided Hospital Course: Patient was admitted to the emergency room with right upper quadrant pain and was found to have acute cholecystitis. The following day she was taken for laparoscopic cholecystectomy. Following surgery she was slowly advanced identifying patient was discharged home with tolerating diet. Weight / BMI Weight Weight: 173 lb 8.061 oz Body Mass Index (BMI) 28.0 ABG / Lab / Microbiology Data Result Diagrams: 06/24/22 06:36 06/24/22 06:36 Laboratory: Laboratory Results - last 24 hr 06/24/22 06:36: WBC 6.2, RBC 4.22, Hgb 13.7, Hct 40.0, MCV 94.8, MCH 32.5 H, MCHC 34.3, RDW Std Deviation 47.5 H, RDW Coeff of Yovani 13.6, Plt Count 281, MPV 10.1, Immature Gran % (Auto) 0.300, Neut % (Auto) 69.8, Lymph % (Auto) 18.0 L, [place] % (Auto) 9.1, Eos % (Auto) 2.2, Baso % (Auto) 0.6, Absolute Neuts (auto) 4.3, Absolute Lymphs (auto) 1.12, Nucleated RBC % 0 06/24/22 06:36: Sodium 138, Potassium 3.6, Chloride 104, Carbon Dioxide 28.0, Anion Gap 6, BUN 6 L, Creatinine 0.65, Estim Creat Clear Calc 46.20, Est GFR (MDRD) Af Amer 114, Est GFR (MDRD) Non-Af 94, BUN/Creatinine Ratio 9.2 L, Glucose 114 H, Calcium 8.5, Total Bilirubin 0.80, AST 17, ALT 26, Alkaline Phosphatase 52, Total Protein 6.3 L, Albumin 3.2, Globulin 3.1, Albumin/Globulin Ratio 1.0 D/C Instructions Discharge Diet: Light diet - advance as tolerated Discharge Activity: May Drive (for 2-3 days or while taking narcotic pain medications.) and - (Do not drive, work heavy equipment or sign legal documents for 24 hours.) May shower in (days): 1 Lifting Restrictions: 20 lbs for 2 weeks Additional Activity Instructions: Pain medication may cause nausea. You should typically eat light foods as you take your pain medications. Pain medication may cause constipation. If this is a problem for you, please discuss with your doctor. Call your doctor if your incision/area has: Continuous Slow Oozing, Sudden Increased Bleeding, Increased Pain/ Swelling, Increased Redness and Foul Smelling Discharge Call your doctor if you observe: Fever of 101 or Higher Suture Line Care: Avoid Pulling/Pushing and Avoid Pinching/Bending Remove Dressing in: 2 days Cleanse incision/area with: Soap & Water Additional Dressing/Incision Instructions: Leave operative bandaids on for 2 days. When you remove dressing, leave Steri-Strips on until your follow-up appointment, or until the Steri-Strips fall off on their own. Additional Instructions: Tylenol and ibuprofen for pain, oxycodone for breakthrough. Please Follow Up With: Arnoldo Nath MD When: Please call to schedule 2 week follow up appointment at [phone] Meaningful Use Info Meaningful Use Diagnoses (Choose all that apply): None applicable Discharge Plan Admission Admit Date/Time: 06/24/22 10:59 Attending Provider: Arnoldo Nath Primary Care Provider: Iliana Thomas Discharge Orders/Prescriptions Prescriptions: New acetaminophen [Tylenol] 325 mg Tablet 650 mg PO Q6H PRN PRN (Reason: Pain Score 1-10/Temp > 100.7 F) Qty: 0 0RF oxycodone 5 mg Tablet 5 - 10 mg PO Q4H PRN PRN (Reason: Pain Score 4-10/10) 5 Days Qty: 20 0RF Continued olopatadine 0.1 % drops 1 drp OPHTHALMIC BID trazodone 50 mg tablet 50 mg PO QHS bupropion HCl [Wellbutrin SR] 150 mg tablet extended release 12 hr 150 mg PO QDAY fluticasone propionate [Flonase Allergy Relief] 50 mcg/actuation spray,suspension 2 spray INTRANASAL QDAY conjugated estrogens [Premarin] 0.625 mg/gram cream VAGINAL .QOD meclizine 12.5 mg tablet 12.5 mg PO TID PRN (Reason: Dizziness) dextromethorphan polistirex [Delsym 12 hour] 30 mg/5 mL suspension,extended rel 12 hr 10 ml PO Q12H promethazine 6.25 mg/5 mL syrup 6.25 mg PO Q6H PRN (Reason: Nausea) fluoxetine [Prozac] 20 mg capsule 40 mg PO QDAY omeprazole 20 mg capsule,delayed release(DR/EC) 20 mg PO QDAY clindamycin phosphate [Clindagel] 1 % gel, once daily 1 applic TOPICAL BID fexofenadine [Vivi Allergy] 180 mg tablet 180 mg PO QDAY mometasone-formoterol [Dulera] 100-5 mcg/actuation HFA aerosol inhaler 2 puff INHALATION Q12H azelastine 137 mcg (0.1 %) aerosol,spray 1 spray INTRANASAL BID albuterol sulfate [Proventil HFA] 90 mcg/actuation HFA aerosol inhaler 2 puff INHALATION Q4H PRN (Reason: SOB) triamterene-hydrochlorothiazid [Maxzide] 75-50 mg tablet 1 tab PO QDAY diclofenac sodium [Voltaren] 1 % gel 2 g TOPICAL .qid PRN (Reason: Itching) clobetasol [Temovate] 0.05 % cream 1 applic TOPICAL BID PRN (Reason: Itching) epinephrine [EpiPen] 0.3 mg/0.3 mL auto-injector 0.3 mg IM Q10-15M PRN (Reason: Allergic Reaction) phenazopyridine [Pyridium] 200 mg tablet 200 mg PO TID PRN (Reason: URINARY SYMPTOMS) Myrbetriq 50 mg Tablet Extended Release 24 Hr 50 mg PO DAILY Referrals / Follow Up: Iliana Thomas MD [Primary Care Provider] - Disposition Disposition (needs filled in before D/C Order can be placed): Home, Self Care
--- NOTE | 2022-06-24 14:59 | EKG12_ITS ---
Test Reason : Blood Pressure : / mmHG Vent. Rate : 063 BPM Atrial Rate : 063 BPM P-R Int : 144 ms QRS Dur : 098 ms QT Int : 438 ms P-R-T Axes : -24 -19 011 degrees QTc Int : 448 ms Sinus rhythm with frequent Premature ventricular complexes Otherwise normal ECG When compared with ECG of 23-JUN-2022 15:27, MANUAL COMPARISON REQUIRED, DATA IS UNCONFIRMED Confirmed by FORREST EDMONDSON, RM ([id number]), news videotape editor GEOVANNA FLORES ([id number]) on 06/29/2022 10:20:53 AM Referred By: GREGG Confirmed By:RM CLAYTON MD
[2022-06-24 15:44] LABS: Troponin-I HS 5 pg/mL (3.0-54.0)
[2022-06-24] MEDS: traZODone 50 MG Tablet PO (21:59)
[2022-06-24] MEDS: Azelastine HCl NASAL.SRY 1 SPRAY NASAL (21:59)
[2022-06-25 00:15] VITALS: BP 110/48; PULSE 75; RESP 16; TEMP 37.6; O2SAT 93
--- NOTE | 2022-06-25 00:45 | EKG12_ITS ---
Test Reason : PRE OP Blood Pressure : / mmHG Vent. Rate : 064 BPM Atrial Rate : 064 BPM P-R Int : 156 ms QRS Dur : 084 ms QT Int : 398 ms P-R-T Axes : -23 -24 018 degrees QTc Int : 410 ms Normal sinus rhythm Nonspecific ST abnormality Abnormal ECG No previous ECGs available Confirmed by JAZZ EDMONDSON, YENNY ([id number]), school photograph editor GEOVANNA FLORES ([id number]) on 06/28/2022 11:16:02 AM Referred By: WILLA Confirmed By:LEO SCHULZ MD
[2022-06-25 04:15] VITALS: BP 135/64; PULSE 65; RESP 16; TEMP 37.1; O2SAT 93
[2022-06-25] MEDS: oxyCODONE 5 MG Tablet PO ×2 (04:27→11:28)
[2022-06-25 08:45] VITALS: BP 135/50; PULSE 62; RESP 18; TEMP 36.6; O2SAT 93
[2022-06-25] MEDS: buPROPion (SR) 150 MG Tablet.SA PO (08:53)
[2022-06-25] MEDS: Pantoprazole Sodium 20 MG Tablet PO (08:53)
[2022-06-25] MEDS: Fluoxetine HCl 40 MG CAPSULE PO (08:53)
[2022-06-25] MEDS: Loratadine 10 MG Tablet PO (08:54)
[2022-06-25] MEDS: Fluticasone 0.05% 1 SPRAY NASAL.SRY 2 SPRAY NASAL (08:54)
[2022-06-25] MEDS: Azelastine HCl NASAL.SRY 1 SPRAY NASAL (08:54)
[2022-06-25] MEDS: Acetaminophen 325 MG Tablet 650 MG PO (09:09)
[2022-06-25] MEDS: Triamterene 75MG/Hctz 50MG Tablet 1 TABLET PO (09:09)
[2022-06-25 09:38] VITALS: PULSE 79; RESP 20; O2SAT 96
[2022-06-25] MEDS: Budesonide Respules 0.5 MG/2 ML AMPUL.NEB. INHALATION (09:38)
--- NOTE | 2022-06-25 10:21 | PN.SURG_ITS ---
Subjective Subjective Patient is doing well tolerating diet pain is controlled with meds. Nursing did think the patient had some palpitations did get an EKG last night which is consistent with her previous one with some PVCs. Objective Data Objective Data Vital Signs: Vital Signs Temp Pulse Resp BP Pulse Ox O2 Del Method O2 Flow Rate 97.9 F 62 18 135/50 H 93 Room Air 2 06/25/22 08:45 06/25/22 08:45 06/25/22 08:45 06/25/22 08:45 06/25/22 08:45 06/25/22 08:48 06/24/22 18:18 FiO2 92 06/24/22 07:05 Oxygen Flow Rate (L/min) 2 Oxygen Delivery Method Room Air Weight: 173 lb 8.061 oz Body Mass Index (BMI) 28.0 Intake & Output: Intake and Output for Last 24 Hours 06/23/22 06/24/22 06/25/22 23:59 23:59 23:59 Intake Total 1050 / 1650 3066.66 / 3066.66 100 / 100 Balance 1050 / 1650 3066.66 / 3066.66 100 / 100 Lab / Micro Data Result Diagrams: 06/24/22 06:36 06/24/22 06:36 Labs: Laboratory Results - last 24 hr 06/24/22 15:08: Troponin I High Sens 5 Radiography Diagnostic Testing: Radiology Impression Cholangiogram 06/24/22 14:07 IMPRESSION: Unremarkable intraoperative cholangiogram. Electronically Signed: Bird Robin MD at 8:25 EDT Reading Location ID and State: [facility] / [place] , Service support , Physical Exam Resp normal respiratory effort Cardio regular rate GI GI Narrative: Abdomen: Soft, nondistended, mildly tender near incisions dressed clean dry and intact, no peritoneal signs Assessment & Plan Assessment/Plan (1) S/P laparoscopic cholecystectomy: PLAN: Plan Patient is doing well tolerating diet having bowel function. Incisions healing well. DC home follow-up with Dr. Nath. Marisela Hanson M.D. Pager: [phone] [facility] [address] [place] [address], [facility], [address] [place] [id number] Office: [phone]
== END 2022-06-25 13:10 | disposition home or self-care (01) | DRG 419 ==
LOC: ED 12:31 → MS3 13:00
PROVIDERS: Anesthesiology; Physician Assistant; Admitting Provider Surgery; Emergency Provider Emergency Medicine; PCP Internal Medicine; Visit Provider Surgery
PROC: 0FT44ZZ Resection of Gallbladder, Percutaneous Endoscopic Approach (ICD-10-PCS; CPT 47610; principal; 2022-06-24 13:30)
DX: K80.00 Calculus of gallbladder with acute cholecystitis without obstruction (principal); F34.1 Dysthymic disorder; G47.30 Sleep apnea, unspecified; J45.909 Unspecified asthma, uncomplicated; K21.9 Gastro-esophageal reflux disease without esophagitis; I49.3 Ventricular premature depolarization; Z79.899 Other long term (current) drug therapy; Z87.891 Personal history of nicotine dependence
CPT/HCPCS: 36415; 74300; 76000; 76705; 80048; 80053; 80076; 81001; 83690; 84484; 85025; 88304; 93005; 94640; 99251; 99283; J7030; J7050; A4216; G0463; J2405

== ENCOUNTER → 2022-06-28 | Outpatient (CLI) | payer MEDICARE, BC, SELFPAY ==
[2022-06-28 15:00] LABS: Absolute Lymphocyte Count 1.27 X10^3/uL (0.83-4.51); Absolute Neutrophil Count 5.1 X10^3/uL (2.0-7.7); Basophil# 0.03 X10^3/uL; Basophil% 0.4 % (0-1); Eosinophil# 0.16 X10^3/uL; Eosinophils% 2.2 % (0-5); Hemoglobin 14.5 g/dL (12.0-15.0); Lymphocyte # 1.27 X10^3/ul (0.83-4.51); Lymphocyte % 17.3 % (19-41); Mean Corpuscular Hgb 32.4 pg (27.0-32.0); Mean Corpuscular Volume 98.4 fL (81-99); Mean Platelet Vol. 10.5 fl (6.2-12.0); Monocyte# 0.73 X10^3/uL; NRBC Flagged by Analyzer 0 % (0-5); Neutrophil # 5.11 X10^3/uL (2.7-7.7); Neutrophil % 69.7 % (47-70); Platelet Count 310 K/mm3 (150-450); RBC Distribution Width CV 13.5 % (11.6-14.6); RBC Distribution Width SD 49.2 fl (35.1-43.9); Red Blood Count 4.47 M/mm3 (4.2-5.4); White Blood Count 7.3 K/mm3 (4.4-11.0)
[2022-06-28 15:16] LABS: ALB/GLOB Ratio 0.9 RATIO (0.9-2.4); AST(SGOT) 206 U/L (15-37); Alanine Aminotransfer ALT/SGPT 321 U/L (13-56); Albumin, Serum 3.6 g/dL (3.2-5.0); Alkaline Phosphatase 254 U/L (45-117); Anion Gap 4 (5-15); BUN 9 mg/dL (7-18); BUN/Creat Ratio 12.4 RATIO (10-20); Calcium,Total 9.6 mg/dL (8.5-10.1); Chloride 104 mmol/L (98-107); Creatinine, Serum 0.72 mg/dL (0.55-1.02); EST Glomerular Filtration Rate 83 mL/min (>60); Est Glom Filt Rate - Afr Amer 101 mL/min (>60); Globulin 3.9 g/dL (2.2-4.2); Glucose 127 mg/dL (74-106); Potassium 3.6 mmol/L (3.5-5.1); Protein, Total 7.5 g/dL (6.4-8.2); Sodium Level 140 mmol/L (136-145)
== END | disposition home or self-care (01) ==
LOC: PAVLAB 14:43
PROVIDERS: PCP Internal Medicine; Visit Provider Physician Assistant
DX: R10.11 Right upper quadrant pain (principal); Z90.49 Acquired absence of other specified parts of digestive tract
CPT/HCPCS: 36415; 80053; 85025

== ENCOUNTER → 2022-06-29 | Outpatient (CLI) | payer MEDICARE, BC, SELFPAY ==
--- NOTE | 2022-06-29 08:28 | US_ITS ---
STUDY: ABDOMINAL ULTRASOUND - RIGHT UPPER QUADRANT REASON FOR VISIT: Female, 76 years old abd pain , gracie 06/23, NM study after TECHNIQUE: Ultrasound evaluation of the right upper quadrant was performed with real-time and static merrill-scale imaging. TECHNICAL QUALITY: Adequate. COMPARISON: 06/23/2022.. FINDINGS: Liver: The liver measures 16.2 cm. There is normal echogenicity of the liver. The bile ducts are within normal limits. There is hepatic color flow. The direction of portal flow is hepatopetal. There is no demonstrated mass lesion. Gallbladder: The gallbladder is surgically absent. There is a negative sonographic Carroll''s sign. Common Bile Duct (C.B.D.): The common bile duct measures 0.7 mm. Pancreas: Normal size of the head, body and tail of the pancreas. There is normal echogenicity of the pancreas. There is no demonstrated pancreatic mass or cyst. Right Kidney: Normal size of the right kidney. The right kidney measures 12.5 x 4.9 x 4.8 cm. Normal renal cortex. The right cortex measures 1.8 cm. There is no demonstrated renal mass or cyst. There is no right hydronephrosis. US/Gallbladder IMPRESSION: Normal right upper quadrant ultrasound examination. Electronically Signed: Osbaldo Santacruz MD at 9:19 EDT ,
--- NOTE | 2022-06-29 08:28 | NM_ITS ---
INDICATION: Possible bile leak -- Cholecystectomy on 06-24 -- Having pain EXAMINATION: NUCLEAR MEDICINE HEPATOBILIARY SCAN - NM Hepatobiliary Imaging Quantitive TECHNIQUE: 5.2 mCi technetium 99m choletec was intravenously administered and static images were obtained. COMPARISON: Ultrasound obtained on 06/29/2022.. FINDINGS: There is homogeneous uptake and excretion of the radiopharmaceutical by the liver. There is no abnormal hyperemia along the gallbladder fossa. Biliary activity is noted at 9 minutes. Bowel activity is noted at 16 minutes. Gallbladder activity is not noted, patient is status post cholecystectomy. Accumulation of radiotracer is visualized superimposed over the gallbladder fossa seen on image 25 and continues to accumulate at this location reaching peak accumulation on image 39 however it subsequently clears, thus most likely represents accumulation of radiotracer within the duodenum. NM/Hepatobilliary Imaging IMPRESSION: No evidence of bile leak is seen. Status post cholecystectomy. Electronically Signed: Osbaldo Santacruz MD at 10:51 EDT ,
== END | disposition home or self-care (01) ==
PROVIDERS: PCP Internal Medicine; Referring Provider Physician Assistant; Visit Provider Physician Assistant
DX: K91.89 Other postprocedural complications and disorders of digestive system (principal); K83.8 Other specified diseases of biliary tract; R10.9 Unspecified abdominal pain; Z90.49 Acquired absence of other specified parts of digestive tract
CPT/HCPCS: 76705; 78226; A9537

== ENCOUNTER → 2022-06-30 | Outpatient (CLI) | payer MEDICARE, BC, SELFPAY ==
[2022-06-30 14:07] LABS: AST(SGOT) 137 U/L (15-37); Alanine Aminotransfer ALT/SGPT 261 U/L (13-56); Albumin, Serum 3.7 g/dL (3.2-5.0); Alkaline Phosphatase 330 U/L (45-117); Bilirubin, Direct 0.29 mg/dL (0.00-0.30); Globulin 3.9 g/dL (2.2-4.2); Protein, Total 7.6 g/dL (6.4-8.2)
== END | disposition home or self-care (01) ==
LOC: LAB 13:22
PROVIDERS: PCP Internal Medicine; Referring Provider Physician Assistant; Visit Provider Physician Assistant
DX: R74.8 Abnormal levels of other serum enzymes (principal)
CPT/HCPCS: 36415; 80076

== ENCOUNTER → 2022-07-07 | Outpatient (CLI) | payer MEDICARE, BC, SELFPAY ==
[2022-07-07 15:12] LABS: AST(SGOT) 44 U/L (15-37); Alanine Aminotransfer ALT/SGPT 98 U/L (13-56); Albumin, Serum 3.7 g/dL (3.2-5.0); Alkaline Phosphatase 195 U/L (45-117); Anion Gap 8 (5-15); BUN 18 mg/dL (7-18); BUN/Creat Ratio 23.7 RATIO (10-20); Calcium,Total 9.3 mg/dL (8.5-10.1); Chloride 106 mmol/L (98-107); Creatinine, Serum 0.76 mg/dL (0.55-1.02); EST Glomerular Filtration Rate 79 mL/min (>60); Est Glom Filt Rate - Afr Amer 96 mL/min (>60); Globulin 3.6 g/dL (2.2-4.2); Glucose 86 mg/dL (74-106); Potassium 3.7 mmol/L (3.5-5.1); Protein, Total 7.3 g/dL (6.4-8.2); Sodium Level 140 mmol/L (136-145)
== END | disposition home or self-care (01) ==
LOC: LAB 13:17
PROVIDERS: PCP Internal Medicine; Visit Provider Physician Assistant
DX: R74.8 Abnormal levels of other serum enzymes (principal)
CPT/HCPCS: 36415; 80053

== ENCOUNTER → 2023-01-04 | Outpatient (CLI) | payer MEDICARE, BC, SELFPAY ==
[2023-01-04 11:20] LABS: Absolute Lymphocyte Count 1.86 X10^3/uL (0.83-4.51); Absolute Neutrophil Count 2.8 X10^3/uL (2.0-7.7); Basophil# 0.06 X10^3/uL; Basophil% 1.1 % (0-1); Eosinophil# 0.18 X10^3/uL; Eosinophils% 3.4 % (0-5); Hematocrit 41.7 % (37-47); Hemoglobin 14.2 g/dL (12.0-15.0); Lymphocyte # 1.86 X10^3/ul (0.83-4.51); Lymphocyte % 34.7 % (19-41); Mean Corp Hgb Conc 34.1 g/dL (32-36); Mean Corpuscular Hgb 31.9 pg (27.0-32.0); Mean Corpuscular Volume 93.7 fL (81-99); Mean Platelet Vol. 10.9 fl (6.2-12.0); Monocyte# 0.45 X10^3/uL; Monocyte% 8.4 % (0-10); NRBC Flagged by Analyzer 0 % (0-5); Neutrophil # 2.79 X10^3/uL (2.7-7.7); Platelet Count 316 K/mm3 (150-450); RBC Distribution Width CV 13.1 % (11.6-14.6); RBC Distribution Width SD 45.5 fl (35.1-43.9); Red Blood Count 4.45 M/mm3 (4.2-5.4); White Blood Count 5.4 K/mm3 (4.4-11.0)
[2023-01-04 12:38] LABS: ALB/GLOB Ratio 1.2 RATIO (0.9-2.4); AST(SGOT) 30 U/L (15-37); Alanine Aminotransfer ALT/SGPT 49 U/L (13-56); Albumin, Serum 4.1 g/dL (3.2-5.0); Alkaline Phosphatase 77 U/L (45-117); Anion Gap 7 (5-15); BUN 15 mg/dL (7-18); BUN/Creat Ratio 19.2 RATIO (10-20); Calcium,Total 9.7 mg/dL (8.5-10.1); Chloride 104 mmol/L (98-107); Creatinine, Serum 0.78 mg/dL (0.55-1.02); EST Glomerular Filtration Rate 76 mL/min (>60); Est Glom Filt Rate - Afr Amer 92 mL/min (>60); Globulin 3.5 g/dL (2.2-4.2); Glucose 108 mg/dL (74-106); Potassium 3.9 mmol/L (3.5-5.1); Protein, Total 7.6 g/dL (6.4-8.2); Sodium Level 139 mmol/L (136-145)
== END | disposition home or self-care (01) ==
LOC: LAB 10:37
PROVIDERS: PCP Internal Medicine; Referring Provider Surgery; Visit Provider Surgery
DX: R10.9 Unspecified abdominal pain (principal)
CPT/HCPCS: 36415; 80053; 85025

== ENCOUNTER 2023-01-07 07:16 | Day surgery (SDC) | payer MEDICARE, BC, SELFPAY ==
[2023-01-07] VITALS (7 sets, daily range): BP systolic 76–109; BP diastolic 32–59; PULSE 56–59; RESP 16–18; TEMP 36.2–36.7; O2SAT 91–97; BMI 27.7
--- NOTE | 2023-01-07 07:25 | PCM.HP.BLA ---
History and Physical Date of Admission: 01/07/23 Intake Visit Reasons:Glenda 06/24 - continuing symptoms, RUQ abd pain Chief Complaint: abd pain, bloating, gas since lap gracie Gear Tester Required: No Is patient in pain?: Yes (RUQ into right back ) Pain scale (1-10): 3 Allergies cigarette smoke Allergy (Mild, Verified 01/04/23 10:07) BURNING LUNGSSeasonal Allergies: Uncoded Allergy (Mild, Verified 01/04/23 10:07) SNEEZING Medications albuterol sulfate 90 mcg/actuation aerosol inhaler (Proventil HFA) 2 puff inhalation Q4H PRN SOB 06/15/18 [History Confirmed 01/04/23] azelastine 137 mcg (0.1 %) nasal spray aerosol 1 spray intranasal BID 06/15/18 [History Confirmed 01/04/23] bupropion HCl 150 mg tablet,12 hr sustained-release (Wellbutrin SR) 150 mg PO QDAY 06/15/18 [History Confirmed 01/04/23] clindamycin phosphate 1 % topical gel, once daily (Clindagel) 1 applic topical BID 06/15/18 [History Confirmed 01/04/23] clobetasol 0.05 % topical cream (Temovate) 1 applic topical BID PRN Itching 06/15/18 [History Confirmed 01/04/23] conjugated estrogens 0.625 mg/gram vaginal cream (Premarin) vaginal .QOD 06/15/18 [History Confirmed 01/04/23] dextromethorphan polistirex 30 mg/5 mL oral susp ext.release 12hr (Delsym 12 hour) 10 ml PO Q12H 06/15/18 [History Confirmed 01/04/23] diclofenac sodium 1 % topical gel (Voltaren) 2 g topical .qid PRN Itching 06/15/18 [History Confirmed 01/04/23] epinephrine 0.3 mg/0.3 mL injection, auto-injector (EpiPen) 0.3 mg IM Q10-15M PRN Allergic Reaction 06/15/18 [History Confirmed 01/04/23] fexofenadine 180 mg tablet (Vivi Allergy) 180 mg PO QDAY 06/15/18 [History Confirmed 01/04/23] fluoxetine 20 mg capsule (Prozac) 40 mg PO QDAY 06/15/18 [History Confirmed 01/04/23] fluticasone propionate 50 mcg/actuation nasal spray,suspension (Flonase Allergy Relief) 2 spray intranasal QDAY 06/15/18 [History Confirmed 01/04/23] meclizine 12.5 mg tablet 12.5 mg PO TID PRN Dizziness 06/15/18 [History Confirmed 01/04/23] mometasone-formoterol HFA 100 mcg-5 mcg/actuation aerosol inhaler (Dulera) 2 puff inhalation Q12H 06/15/18 [History Confirmed 01/04/23] omeprazole 20 mg capsule,delayed release 20 mg PO QDAY 06/15/18 [History Confirmed 01/04/23] phenazopyridine 200 mg tablet (Pyridium) 200 mg PO TID PRN URINARY SYMPTOMS 06/15/18 [History Confirmed 01/04/23] promethazine 6.25 mg/5 mL oral syrup 6.25 mg PO Q6H PRN Nausea 06/15/18 [History Confirmed 01/04/23] trazodone 50 mg tablet 50 mg PO QHS 06/15/18 [History Confirmed 01/04/23] triamterene 75 mg-hydrochlorothiazide 50 mg tablet (Maxzide) 1 tab PO QDAY 06/15/18 [History Confirmed 01/04/23] olopatadine 0.1 % eye drops 1 drp ophthalmic (eye) BID 06/20/18 [History Confirmed 01/04/23] mirabegron 50 mg tablet,extended release 24 hr (Myrbetriq) 50 mg PO DAILY 06/23/22 [History Confirmed 01/04/23] acetaminophen 325 mg tablet (Tylenol) 650 mg PO Q6H PRN PRN Pain Score 1-10/Temp > 100.7 F #0 tabs 06/24/22 [Rx Confirmed 01/04/23] oxycodone 5 mg tablet 5 - 10 mg PO Q4H PRN PRN Pain Score 4-10/10 5 days #20 tabs 06/24/22 [Rx Confirmed 01/04/23] Is last menstrual period known: No Post menopausal: Yes Patient : No PFSH Medical History? Acne rosacea Allergic rhinitis Asthma Daytime sleepiness Depression Dysthymic disorder External hemorrhoids GERD (gastroesophageal reflux disease) Internal hemorrhoids Menieres disease Sleep apnea Snoring Vitamin D deficiency Witnessed episode of apnea Surgical History? benign breast lump, impacted milk gland H/O inguinal hernia repair H/O tubal ligation History of cholecystectomy Family History? Other No family history of disorders Social History? household members:? spouse housing:? house current occupational status:? retired pets and animals:? Yes pets and animals: cat(s) Smoking Status:? Former smoker quit date: 11/28/71 pack-years: 8 second hand exposure:? No alcohol intake:? current substance use type:? other HPI HPI HPI: Patient is a 77-year-old female.? She had her gallbladder removed in May and has been having right upper quadrant pain ever since.? She says she had an attack recently that felt just like her gallbladder attacks.? She denies any nausea or vomiting.? She has the pain radiates around to the right side of her back. ROS General General: No weight change or fatigue HEENT HEENT: No difficulty swallowing Endo Endocrine: No thyroid disease Musc Musculoskeletal: No back problems or arthritis Cardio Cardiovascular: No pacemaker, heart disease, atrial fibrillation, high blood pressure, heart attack, heart stent, palpitations or chest pain Psych Psychiatric: No depression or anxiety Resp Respiratory: No shortness of breath, No cough, No COPD, No asthma and No emphysema Gastro Gastrointestinal: Yes abdominal pain, No nausea or vomiting, No diarrhea, No constipation, No blood in stool, No acid reflux, No hemorrhoids, No ulcers, No gallbladder problem and No black,tarry stools Steven Hematologic: No blood thinners Exam Const General: cooperative Orientation: alert and oriented x3 HENMT Head: normal to inspection Neck Neck: normal visual inspection and full ROM Chest Chest palpation & inspection: normal inspection of the chest Resp Effort & Inspection: normal respiratory effort Auscultation: clear to auscultation bilaterally Cardio Rate: regular rate Rhythm: regular rhythm GI Inspection: non-distended Palpation: soft and nontender Skin General: no rashes or lesions noted Neuro General: patient alert and patient oriented x3 Extrem General: full ROM Psych Appearance: grossly normal Mental Status: mental status grossly normal Assessment and Plan Assessment and Plan (1) S/P laparoscopic cholecystectomy: ?Status:?Acute (2) RUQ pain: ?Status:?Acute ? ? ? Orders: Orders EGD Today ? ? Comprehensive Metabolic Profil Today R10.9 - Unspecified abdominal pain ? CBC W/Diff, Automated Today R10.9 - Unspecified abdominal pain ? Plan The patient has ongoing right upper quadrant pain.? After her cholecystectomy we performed an ultrasound and a HIDA which was both normal.? I will order LFTs to see if her liver enzymes are elevated and perform an EGD to check for ulcer. I explained endoscopy in detail to the patient.? I explained the risks including but not limited to stroke or heart attack with anesthesia, perforation of the GI tract, bleeding, infection.? I explained that any of these could necessitate further emergency surgery.? The patient understands and all questions were answered sufficiently.? The patient wishes to proceed with procedure. Arnoldo Nath MD Pager: [facility] [address] [place] [address], [address] [place] [address] Office: I have examined the patient and the H&P has been reviewed. There are no clinical changes since date of exam.
[2023-01-07] MEDS: Lactated Ringers 1,000 ML 15 ML IV (07:30)
--- NOTE | 2023-01-07 08:21 | OP.EGD_ITS ---
Patient Name: Alea Dickens Procedure Date: 01/07/2023 8:06 AM Date of : 1945 Age: 77 Procedure: Upper GI endoscopy Indications: Epigastric abdominal pain Providers: Arnoldo Nath MD Medicines: Monitored Anesthesia Care Complications: No immediate complications. Procedure: Pre-Anesthesia Assessment: - Prior to the procedure, a History and Physical was performed, and patient medications and allergies were reviewed. The patient's tolerance of previous anesthesia was also reviewed. The risks and benefits of the procedure and the sedation options and risks were discussed with the patient. All questions were answered, and informed consent was obtained. Prior Anticoagulants: The patient has taken no previous anticoagulant or antiplatelet agents. After reviewing the risks and benefits, the patient was deemed in satisfactory condition to undergo the procedure. After obtaining informed consent, the endoscope was passed under direct vision. Throughout the procedure, the patient's blood pressure, pulse, and oxygen saturations were monitored continuously. The Endoscope was introduced through the mouth, and advanced to the fourth part of duodenum. Scope In: 8:15:45 AM Scope Out: 8:17:49 AM Total Procedure Duration Time 0 hours 2 minutes 4 seconds Findings: The esophagus was normal. The stomach was normal. The examined duodenum was normal. Impression: - Normal esophagus. - Normal stomach. - Normal examined duodenum. - No specimens collected. Recommendation: - Discharge patient to home. - Resume previous diet. - Continue present medications. Procedure Code(s): --- Professional --- 98474, Esophagogastroduodenoscopy, flexible, transoral; diagnostic, including collection of specimen(s) by brushing or washing, when performed (separate procedure) Diagnosis Code(s): --- Professional --- R10.13, Epigastric pain CPT copyright 2017 [employer]. All rights reserved. The codes documented in this report are preliminary and upon barrel loader review may be revised to meet current compliance requirements. Arnoldo Nath MD 01/07/2023 8:21:26 AM This report has been signed electronically. Number of Addenda: 0 Note Initiated On: 01/07/2023 8:06 AM
--- NOTE | 2023-01-07 08:22 | OP.CCLET_ITS ---
01/07/2023 Iliana Thomas [address] [place] [address] Re : Upper GI endoscopy procedure for Alea Dickens Dear Dr. Thomas This procedure was performed on Saturday, January 07, 2023. My impressions and recommendations are as follows: Impressions : - Normal esophagus. - Normal stomach. - Normal examined duodenum. - No specimens collected. Recommendations : - Discharge patient to home. - Resume previous diet. - Continue present medications. My findings are described in the full procedure note, which is enclosed. If I can be of further assistance, please feel free to contact me at Doctor phone number(s): , Work: . Sincerely, Arnoldo Nath MD 01/07/2023 8:21:26 AM This report has been signed electronically.
== END 2023-01-07 09:06 | disposition home or self-care (01) ==
LOC: EN 07:18 → AC 07:19
PROVIDERS: PCP Internal Medicine; Referring Provider Internal Medicine; Visit Provider Surgery
PROC: 0DJ08ZZ Inspection of Upper Intestinal Tract, Via Natural or Artificial Opening Endoscopic (ICD-10-PCS; CPT 43235; principal; 2023-01-07 08:10)
DX: R10.11 Right upper quadrant pain (principal); R10.13 Epigastric pain; Z90.49 Acquired absence of other specified parts of digestive tract; Z87.891 Personal history of nicotine dependence; K21.9 Gastro-esophageal reflux disease without esophagitis; J45.909 Unspecified asthma, uncomplicated; Z79.899 Other long term (current) drug therapy
CPT/HCPCS: 43235; J7120; J2405

== ENCOUNTER 2023-04-05 19:17 | Day surgery (SDC) | payer MEDICARE, BC, SELFPAY ==
[2023-04-05] VITALS (7 sets, daily range): BP systolic 112–177; BP diastolic 55–90; PULSE 58–80; RESP 15–18; TEMP 36.3–36.9; O2SAT 97–100; BMI 29.0
--- NOTE | 2023-04-05 19:45 | EDS_ITS ---
HPI HPI - GI History of Present Illness Chief Complaint: Foreign Body Detail of Chief Complaint: Esophageal food impaction Informant: patient Abdominal Pain/Flank Pain Onset: Today Context: Sudden Onset Timing: Continuous Quality: Stabbing Location: - (Lower sternal) Worsened by: Nothing Relieved by: Nothing Nausea/Vomiting/Emesis GI Symptom: Positive for Nausea and Vomiting Diarrhea/Melena/Hematochezia GI Symptom: Negative for Diarrhea, Melena or Hematochezia Associated Symptoms Associated Symptoms: Negative for Dysuria, Frequency or Hematuria Narrative Narrative: Present with esophageal impaction that occurred today. Patient states she was eating a chicken for slowly and felt like it got stuck. Patient states it is in the lower substernal area. Patient describes it as stabbing. Patient states it is worse whenever she tries to drink anything. Patient states she has been trying to make herself vomit but it has been unable to vomit up anything. Patient states she is unable to even swallow liquids. Patient denies any shortness of breath. Patient denies any diarrhea. PFSH [facility] Medical History Acne rosacea Alcohol use Allergic rhinitis Anemia Asthma Bladder disease CPAP (continuous positive airway pressure) dependence Depression Dysthymic disorder External hemorrhoids Former smoker GERD (gastroesophageal reflux disease) Hypertension Internal hemorrhoids Leg cramps Menieres disease Post-menopausal Vitamin D deficiency Wears glasses Home Medications albuterol sulfate 90 mcg/actuation aerosol inhaler (Proventil HFA) 2 puff inhalation Q4H PRN SOB 06/15/18 [History Last Taken Unknown] azelastine 137 mcg (0.1 %) nasal spray aerosol 1 spray intranasal PRN PRN Conges tion 06/15/18 [History Last Taken Unknown] bupropion HCl 150 mg tablet,12 hr sustained-release (Wellbutrin SR) 150 mg PO QDAY 06/15/18 [History Last Taken Unknown] clobetasol 0.05 % topical cream (Temovate) 1 applic topical BID PRN Itching 06/15/18 [History Last Taken Unknown] conjugated estrogens 0.625 mg/gram vaginal cream (Premarin) 0.625 mg vaginal .QOD 06/15/18 [History Last Taken Unknown] dextromethorphan polistirex 30 mg/5 mL oral susp ext.release 12hr (Delsym 12 hour) 10 ml PO PRN PRN Cough 06/15/18 [History Last Taken Unknown] diclofenac sodium 1 % topical gel (Voltaren) 2 g topical .qid PRN Pain 06/15/18 [History Last Taken Unknown] epinephrine 0.3 mg/0.3 mL injection, auto-injector (EpiPen) 0.3 mg IM Q10-15M PRN Allergic Reaction 06/15/18 [History Last Taken Unknown] fexofenadine 180 mg tablet (Vivi Allergy) 180 mg PO QDAY 06/15/18 [History Last Taken Unknown] fluticasone propionate 50 mcg/actuation nasal spray,suspension (Flonase Allergy Relief) 2 spray intranasal QDAY 06/15/18 [History Last Taken Unknown] meclizine 12.5 mg tablet 12.5 mg PO TID PRN Dizziness 06/15/18 [History Last Taken Unknown] mometasone-formoterol HFA 100 mcg-5 mcg/actuation aerosol inhaler (Dulera) 2 puff inhalation Q12H 06/15/18 [History Last Taken Unknown] omeprazole 20 mg capsule,delayed release 20 mg PO QDAY 06/15/18 [History Last Taken 01/07/23] phenazopyridine 200 mg tablet (Pyridium) 200 mg PO TID PRN URINARY SYMPTOMS 06/15/18 [History Last Taken Unknown] promethazine 6.25 mg/5 mL oral syrup 6.25 mg PO Q6H PRN Nausea 06/15/18 [History Last Taken Unknown] trazodone 50 mg tablet 50 mg PO QHS 06/15/18 [History Last Taken Unknown] triamterene 75 mg-hydrochlorothiazide 50 mg tablet (Maxzide) 1 tab PO QDAY 06/15/18 [History Last Taken Unknown] olopatadine 0.1 % eye drops 1 drp ophthalmic (eye) PRN PRN ITCHY 06/20/18 [History Last Taken Unknown] acetaminophen 325 mg tablet (Tylenol) 650 mg PO Q6H PRN PRN Pain Score 1-10/Temp > 100.7 F #0 tabs 06/24/22 [Rx Last Taken Unknown] escitalopram oxalate 20 mg tablet (Lexapro) 20 mg PO DAILY 01/05/23 [History Last Taken Unknown] Allergy/AdvReac Type Severity Reaction Status Date / Time cigarette smoke Allergy Mild BURNING Verified 04/05/23 19:21 LUNGS Seasonal Allergies: Uncoded Allergy Mild SNEEZING Verified 04/05/23 19:21 Family History Other No family history of disorders Surgical History benign breast lump, impacted milk gland H/O inguinal hernia repair H/O tubal ligation History of cholecystectomy Social History household members: spouse housing: house current occupational status: retired pets and animals: Yes pets and animals: cat(s) Smoking Status: Former smoker quit date: 11/28/71 pack-years: 8 second hand exposure: No alcohol intake: current substance use type: other ROS ROS ED Constitutional Constitutional ED: Denies chills or fever(s) Eyes Eyes: Denies blurry vision or change in vision ENT ENT ED: Denies rhinorrhea or sore throat Cardiovascular Cardiovascular: Reports chest pain; Denies palpitations Respiratory/Chest Respiratory/Chest: Denies cough or dyspnea Gastrointestinal Gastrointestinal: Reports nausea and vomiting Genitourinary Genitourinary ED: Denies dysuria or hematuria Musculoskeletal Musculoskeletal: Reports back pain; Denies neck pain Integumentary Denies abscess or rash Neurologic Neurologic: Denies headache(s) or weakness Allergic/Immunologic Allergic/Immunologic ED: Denies mouth swelling or urticaria EXAM Physical Exam Const Vital Signs: 04/05/23 19:18 04/05/23 19:26 Temperature 97.3 F L Temperature Source Temporal Pulse Rate 80 Respiratory Rate 15 Respiratory Effort Normal Blood Pressure 177/64 H Blood Pressure Mean 101 Pulse Ox 100 Oxygen Delivery Method Room Air Positive well nourished and well developed General Appearance ED: well developed and NAD HEENT Reports moist mucous membranes Neck supple and no JVD Resp normal respiratory effort and clear to auscultation bilaterally Cardio regular rate, regular rhythm and no murmurs GI normal to inspection, nondistended, normoactive bowel sounds and non-tender Palpation: soft Extremity normal to inspection General Extremety ED: Negative for edema or tenderness General Extremity: Negative for edema Neuro oriented x3, CN's II-XII intact bilaterally and no sensory deficits noted Sensorium / Orientation: alert Motor Exam: strength 5/5 throughout Psych mental status grossly normal Skin no rashes or lesions noted MDM MDM MDM Narrative Medical decision making narrative: Differential diagnosis includes esophageal food impaction. Patient has had this before. Patient was advised of the need for procedural sedation and EGD. Patient is agreeable with this. Case was discussed with Dr. Hanson. She will take patient to the operating room for EGD. Patient understands and is agreeable with the plan. All questions were answered. Discharge Plan Triage Chief Complaint: Foreign Body ED Provider: Vic Turner Dx/Rx/DC Orders Clinical Impression: Esophageal obstruction due to food impaction, BMI 29.0-29.9,adult Instructions: ED Esophageal Foreign Body, Resolved Prescriptions: No Action olopatadine 0.1 % drops 1 drp OPHTHALMIC PRN PRN (Reason: ITCHY) trazodone 50 mg tablet 50 mg PO QHS bupropion HCl [Wellbutrin SR] 150 mg tablet extended release 12 hr 150 mg PO QDAY fluticasone propionate [Flonase Allergy Relief] 50 mcg/actuation spray,suspension 2 spray INTRANASAL QDAY conjugated estrogens [Premarin] 0.625 mg/gram cream 0.625 mg VAGINAL .QOD meclizine 12.5 mg tablet 12.5 mg PO TID PRN (Reason: Dizziness) dextromethorphan polistirex [Delsym 12 hour] 30 mg/5 mL suspension,extended rel 12 hr 10 ml PO PRN PRN (Reason: Cough) promethazine 6.25 mg/5 mL syrup 6.25 mg PO Q6H PRN (Reason: Nausea) omeprazole 20 mg capsule,delayed release(DR/EC) 20 mg PO QDAY fexofenadine [Vivi Allergy] 180 mg tablet 180 mg PO QDAY mometasone-formoterol [Dulera] 100-5 mcg/actuation HFA aerosol inhaler 2 puff INHALATION Q12H azelastine 137 mcg (0.1 %) aerosol,spray 1 spray INTRANASAL PRN PRN (Reason: Congestion) albuterol sulfate [Proventil HFA] 90 mcg/actuation HFA aerosol inhaler 2 puff INHALATION Q4H PRN (Reason: SOB) triamterene-hydrochlorothiazid [Maxzide] 75-50 mg tablet 1 tab PO QDAY diclofenac sodium [Voltaren] 1 % gel 2 g TOPICAL .qid PRN (Reason: Pain) clobetasol [Temovate] 0.05 % cream 1 applic TOPICAL BID PRN (Reason: Itching) epinephrine [EpiPen] 0.3 mg/0.3 mL auto-injector 0.3 mg IM Q10-15M PRN (Reason: Allergic Reaction) phenazopyridine [Pyridium] 200 mg tablet 200 mg PO TID PRN (Reason: URINARY SYMPTOMS) acetaminophen [Tylenol] 325 mg Tablet 650 mg PO Q6H PRN PRN (Reason: Pain Score 1-10/Temp > 100.7 F) Qty: 0 0RF escitalopram oxalate [Lexapro] 20 mg Tablet 20 mg PO DAILY Primary Care Provider: Iliana Thomas Referrals: Iliana Thomas MD [Primary Care Provider] - 5-7 Days Disposition Disposition: Acute Care Hospital [facility]
--- NOTE | 2023-04-05 19:50 | EX.PCM.CON.S ---
Assessment & Plan Assessment/Plan (1) Esophageal obstruction due to food impaction: PLAN: Plan I have discussed the above with the patient. I have offered the patient esophagogastroduodenoscopy, possible foreign body removal I have explained the risks/benefits of the procedure and described the procedure. I have discussed the risks with the patient, including but not limited to: infection, bleeding, perforation of the GI tract requiring emergency surgery, inability to complete the procedure, injury to any internal organs, complications of anesthesia, etc. - the patient understands and agrees to proceed. I have answered all the patient's questions to the patient's satisfaction and the patient has no further questions. Marisela Hanson M.D. Pager: [phone] [facility] [address] [place] [address], [facility], [address] [place] [address] Office: [phone] HPI Consult Data Date of Consult: 04/05/23 HPI Narrative Reason for Consultation: Esophageal food impaction HPI Narrative: DEIDRE STONE, is a 77 F who presents presents due to chest pain and esophageal food impaction. Patient states she was eating a chicken broth soup and she gets chest pain unable to swallow her saliva currently. Patient denies any abdominal pain. Patient did just have an EGD with Dr. Nath in November 2022 no stricture was noted at that time. Patient states she was a having some reflux as it was due to an overactive bladder medication but after stopping that medication she was able to stop her reflux medication as well. [facility] Medical History Acne rosacea Alcohol use Allergic rhinitis Anemia Asthma Bladder disease CPAP (continuous positive airway pressure) dependence Depression Dysthymic disorder External hemorrhoids Former smoker GERD (gastroesophageal reflux disease) Hypertension Internal hemorrhoids Leg cramps Menieres disease Post-menopausal Vitamin D deficiency Wears glasses Home Medications albuterol sulfate 90 mcg/actuation aerosol inhaler (Proventil HFA) 2 puff inhalation Q4H PRN SOB 06/15/18 [History Last Taken Unknown] azelastine 137 mcg (0.1 %) nasal spray aerosol 1 spray intranasal PRN PRN Congestion 06/15/18 [History Last Taken Unknown] bupropion HCl 150 mg tablet,12 hr sustained-release (Wellbutrin SR) 150 mg PO QDAY 06/15/18 [History Last Taken Unknown] clobetasol 0.05 % topical cream (Temovate) 1 applic topical BID PRN Itching 06/15/18 [History Last Taken Unknown] conjugated estrogens 0.625 mg/gram vaginal cream (Premarin) 0.625 mg vaginal .QOD 06/15/18 [History Last Taken Unknown] dextromethorphan polistirex 30 mg/5 mL oral susp ext.release 12hr (Delsym 12 hour) 10 ml PO PRN PRN Cough 06/15/18 [History Last Taken Unknown] diclofenac sodium 1 % topical gel (Voltaren) 2 g topical .qid PRN Pain 06/15/18 [History Last Taken Unknown] epinephrine 0.3 mg/0.3 mL injection, auto-injector (EpiPen) 0.3 mg IM Q10-15M PRN Allergic Reaction 06/15/18 [History Last Taken Unknown] fexofenadine 180 mg tablet (Vivi Allergy) 180 mg PO QDAY 06/15/18 [History Last Taken Unknown] fluticasone propionate 50 mcg/actuation nasal spray,suspension (Flonase Allergy Relief) 2 spray intranasal QDAY 06/15/18 [History Last Taken Unknown] meclizine 12.5 mg tablet 12.5 mg PO TID PRN Dizziness 06/15/18 [History Last Taken Unknown] mometasone-formoterol HFA 100 mcg-5 mcg/actuation aerosol inhaler (Dulera) 2 puff inhalation Q12H 06/15/18 [History Last Taken Unknown] omeprazole 20 mg capsule,delayed release 20 mg PO QDAY 06/15/18 [History Last Taken 01/07/23] phenazopyridine 200 mg tablet (Pyridium) 200 mg PO TID PRN URINARY SYMPTOMS 06/15/18 [History Last Taken Unknown] promethazine 6.25 mg/5 mL oral syrup 6.25 mg PO Q6H PRN Nausea 06/15/18 [History Last Taken Unknown] trazodone 50 mg tablet 50 mg PO QHS 06/15/18 [History Last Taken Unknown] triamterene 75 mg-hydrochlorothiazide 50 mg tablet (Maxzide) 1 tab PO QDAY 06/15/18 [History Last Taken Unknown] olopatadine 0.1 % eye drops 1 drp ophthalmic (eye) PRN PRN ITCHY 06/20/18 [History Last Taken Unknown] acetaminophen 325 mg tablet (Tylenol) 650 mg PO Q6H PRN PRN Pain Score 1-10/Temp > 100.7 F #0 tabs 06/24/22 [Rx Last Taken Unknown] escitalopram oxalate 20 mg tablet (Lexapro) 20 mg PO DAILY 01/05/23 [History Last Taken Unknown] Allergy/AdvReac Type Severity Reaction Status Date / Time cigarette smoke Allergy Mild BURNING Verified 04/05/23 19:21 LUNGS Seasonal Allergies: Uncoded Allergy Mild SNEEZING Verified 04/05/23 19:21 Family History Other No family history of disorders Surgical History benign breast lump, impacted milk gland H/O inguinal hernia repair H/O tubal ligation History of cholecystectomy Social History household members: spouse housing: house current occupational status: retired pets and animals: Yes pets and animals: cat(s) Smoking Status: Former smoker quit date: 11/28/71 pack-years: 8 second hand exposure: No alcohol intake: current substance use type: other Physical Exam Narrative Patient is spitting up her saliva into a cup Const alert, oriented x3 and no apparent distress HEENT normocephalic and head/scalp atraumatic Resp normal respiratory effort Cardio regular rate GI soft to palpation and non-tender; Negative for non-distended Palpation: Negative for guarding Extremity no clubbing, cyanosis or edema Neuro CN's II-XII intact bilaterally Psych mental status grossly normal
--- NOTE | 2023-04-05 20:19 | OP.EGD_ITS ---
Patient Name: Alea Dickens Procedure Date: 04/05/2023 7:57 PM Date of : 1945 Age: 77 Procedure: Upper GI endoscopy Indications: Foreign body in the esophagus Providers: Marisela Hanson MD Medicines: Monitored Anesthesia Care Patient Profile: This is a 77 year old female. Complications: No immediate complications. Procedure: Pre-Anesthesia Assessment: - Prior to the procedure, a History and Physical was performed, and patient medications and allergies were reviewed. The patient's tolerance of previous anesthesia was also reviewed. The risks and benefits of the procedure and the sedation options and risks were discussed with the patient. All questions were answered, and informed consent was obtained. Prior Anticoagulants: The patient has taken no previous anticoagulant or antiplatelet agents. ASA Grade Assessment: Per anesthesia. After reviewing the risks and benefits, the patient was deemed in satisfactory condition to undergo the procedure. After obtaining informed consent, the endoscope was passed under direct vision. Throughout the procedure, the patient's blood pressure, pulse, and oxygen saturations were monitored continuously. The Endoscope was introduced through the mouth, and advanced to the body of the stomach. The upper GI endoscopy was accomplished without difficulty. The patient tolerated the procedure well. Scope In: 8:10:57 PM Scope Out: 8:14:26 PM Total Procedure Duration Time 0 hours 3 minutes 29 seconds Findings: Food was found in the mid esophagus. Food was able to pass to stomach with insufflation of esophagus- no stricture noted. A large amount of food (residue) was found in the gastric body. Impression: - Food in the mid esophagus. - A large amount of food (residue) in the stomach. - No specimens collected. Recommendation: - Discharge patient to home. - Resume previous diet. - Continue present medications. Procedure Code(s): --- Professional --- 48687, 52, Esophagogastroduodenoscopy, flexible, transoral; diagnostic, including collection of specimen(s) by brushing or washing, when performed (separate procedure) Diagnosis Code(s): --- Professional --- T18.128A, Food in esophagus causing other injury, initial encounter T18.108A, Unspecified foreign body in esophagus causing other injury, initial encounter CPT copyright 2017 [employer]. All rights reserved. The codes documented in this report are preliminary and upon residency program coordinator review may be revised to meet current compliance requirements. MD Marisela Cuadra MD 04/05/2023 8:19:23 PM This report has been signed electronically. Number of Addenda: 0 Note Initiated On: 04/05/2023 7:57 PM
--- NOTE | 2023-04-05 20:20 | OP.CCLET_ITS ---
04/05/2023 Iliana Thomas [address] [place] [address] Re : Upper GI endoscopy procedure for Alea Dickens Dear Dr. Thomas This procedure was performed on Wednesday, April 05, 2023. My impressions and recommendations are as follows: Impressions : - Food in the mid esophagus. - A large amount of food (residue) in the stomach. - No specimens collected. Recommendations : - Discharge patient to home. - Resume previous diet. - Continue present medications. My findings are described in the full procedure note, which is enclosed. If I can be of further assistance, please feel free to contact me at Doctor phone number(s): , Work: . Sincerely, MD Marisela Cuadra MD 04/05/2023 8:19:23 PM This report has been signed electronically.
== END 2023-04-05 20:44 | disposition home or self-care (01) ==
LOC: ED 19:56 → EN 19:57 → AC 19:57
PROVIDERS: Emergency Provider Emergency Medicine; Referring Provider Surgery; Visit Provider Surgery
PROC: 0DJ08ZZ Inspection of Upper Intestinal Tract, Via Natural or Artificial Opening Endoscopic (ICD-10-PCS; CPT 43235; principal; 2023-04-05 20:00)
DX: T18.128A Food in esophagus causing other injury, initial encounter (principal); Z87.891 Personal history of nicotine dependence; Z79.899 Other long term (current) drug therapy; K22.2 Esophageal obstruction; I10 Essential (primary) hypertension; J45.909 Unspecified asthma, uncomplicated
CPT/HCPCS: 43235; 99283; A4216

== ENCOUNTER → 2024-03-29 | Outpatient (CLI) | payer MEDICARE, BC, SELFPAY ==
--- NOTE | 2024-03-29 15:26 | MRI_ITS ---
HISTORY: Asymmetric right hearing loss. TECHNIQUE: Multiplanar and multisequence MR images of the brain and internal auditory canals were obtained before and after the intravenous administration of 15 mL Clariscan. 424 images. COMPARISON: None. FINDINGS: BRAIN PARENCHYMA: Mild foci of increased T2 FLAIR signal in the bilateral cerebral white matter and siddharth. No enhancing lesion in the brain parenchyma. No abnormal focus of restricted diffusion. No acute intracranial hemorrhage. INTERNAL AUDITORY CANALS: No cerebellopontine angle mass. Symmetric appearance of the bilateral fifth, seventh, and 8th cranial nerve complexes. Patent internal auditory canals bilaterally without enhancing mass identified. CSF SPACES: Cerebral ventricles, cortical sulci, and other extra-axial CSF spaces within normal limits for age. No midline shift or other significant mass effect. No extra-axial fluid collection. VASCULAR SYSTEM: Normal flow voids in the major intracranial circulation. PARANASAL SINUSES AND MASTOID AIR CELLS: Trace fluid in the right mastoid air cells. Small left nasopharyngeal retention cyst. ORBITS: Bilateral lens resections. MRI/Brain W/WO Contrast IMPRESSION: Unremarkable examination of the internal auditory canals. No evidence for enhancing intracranial mass. Mild chronic small vessel ischemic gliosis. No evidence for acute infarct. Electronically Signed: Deborah Ca MD at 14:19 EDT ,
[2024-03-29 16:03] LABS: CREATININE FINGERSTICK < 1.0 mg/dL (0.55-1.02); EGFR FINGERSTICK > 60.0000 mL/min (>60)
== END | disposition home or self-care (01) ==
LOC: MRI 15:24
PROVIDERS: PCP Internal Medicine; Referring Provider Otolaryngology; Visit Provider Otolaryngology
DX: H91.90 Unspecified hearing loss, unspecified ear (principal)
CPT/HCPCS: 70553; A9575

== ENCOUNTER 2025-11-08 07:38 | Day surgery (SDC) | payer MEDICARE, BC, SELFPAY ==
--- NOTE | 2025-11-06 12:08 | PAT.ANE_ITS ---
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 When Was Last Pacemaker Check QUESTION #4 FULL TEXT: You/Your Family Experience fever (hyperthermia) with Anesthesia Last Oral Intake Last Oral intake: Last Oral Intake NPO since Meds taken in AM with sips of water? 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 Female Yes 11/06/25 11:43 HX of Motion Sickness No 11/06/25 11:43 HX of N/V After Surgery Yes 11/06/25 11:43 Non-Smoker Yes 11/06/25 11:43 Duration of Surgery greater No 11/06/25 11:43 than 60 minutes Number of Risk Factors 3 11/06/25 11:43 PONV Score Moderate Risk 11/06/25 11:43 Height & Weight Height & Weight: Anesthesia: Height & Weight Height 5 ft 6 in 09/25/25 13:18 Respiratory Assessment Respiratory Assessment - pathology laboratory aides teacher: Respiratory Tract Infection Hx - 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 Has anyone observed you stop breathing during sleep? STOP Results Positive 11/06/25 11:43 QUESTION #5 FULL TEXT : Do you snore loudly (louder than talking or can be heard through closed doors)? 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 Specify any problems Hx of Preganancy in last 3 No 11/06/25 11:43 Months Nurse Filling Out Transfusion [email or web address] 11/06/25 11:43 & Questions: Date: 11/06/25 11/06/25 11:43 Time: 11:46 11/06/25 11:43 Patient unable to answer at this time (ie. confused, unrespo /Reproduction History /Reproductive History - pathology laboratory aides teacher: /Reproductive Hx- pathology laboratory aides teacher Hx Now Gestational Age (in weeks): EDC: Hx Hx Para Hx Section SAB No 01/05/23 11:20 Does the father of the baby or his family experience fever w Father of the baby Malignant Hypertension history comment PFS Medical History (Updated 11/06/25 @ 11:51 by Manjit Chavez) Anxiety Wears glasses Post-menopausal Alcohol use Bladder disease Anemia Former smoker CPAP (continuous positive airway pressure) dependence Leg cramps Hypertension Depression Vitamin D deficiency Asthma Menieres disease Internal hemorrhoids GERD (gastroesophageal reflux disease) External hemorrhoids Dysthymic disorder Allergic rhinitis Acne rosacea Home Medications ?Medication ?Instructions ?Recorded ?Last Taken ?Type albuterol sulfate 90 mcg/actuation 2 puff inhalation Q 4H PRN SOB 06/15/18 Unknown History aerosol inhaler (Proventil HFA) azelastine 137 mcg (0.1 %) nasal 1 spray intranasal NJ N PRN 06/15/18 Unknown History spray Congestion bupropion HCl 150 mg tablet,12 hr 150 mg PO QDAY 06/15 Unknown History sustained-release (Wellbutrin SR) clobetasol 0.05 % topical cream 1 applic topical BID P RN Itching 06/15/18 Unknown History (Temovate) conjugated estrogens 0.625 mg/gram 0.625 mg vaginal QO DAY 06/15/18 Unknown History vaginal cream (Premarin) diclofenac sodium 1 % topical gel 2 g topical DAILY NJ N Pain 06/15/18 Unknown History (Voltaren) epinephrine 0.3 mg/0.3 mL 0.3 mg IM Q10-15M PRN Allerg ic 06/15/18 Unknown History injection, auto-injector (EpiPen) Reaction fexofenadine 180 mg tablet 180 mg PO QDAY PRN allergy symptoms 06/15/18 Unknown History (Vivi Allergy) fluticasone propionate 50 2 spray intranasal QDAY PRN 06/15/18 Unknown History mcg/actuation nasal allergy symptoms spray,suspension (Flonase Allergy Relief) meclizine 12.5 mg tablet 12.5 mg PO TID PRN Dizziness 06/15/18 Unknown History mometasone-formoterol HFA 100 2 puff inhalation Q12H P RN 06/15/18 Unknown History mcg-5 mcg/actuation aerosol shortness of breath inhaler (Dulera) omeprazole 20 mg capsule,delayed 20 mg PO QDAY 8 01/07/23 History release phenazopyridine 200 mg tablet 200 mg PO TID PRN URINAR Y SYMPTOMS 06/15/18 Unknown History (Pyridium) trazodone 50 mg tablet 50 mg PO QHS 06/15/18 Unknow n History triamterene 75 1 tab PO QDAY 06/15/18 Unkno wn History mg-hydrochlorothiazide 50 mg tablet (Maxzide) olopatadine 0.1 % eye drops 1 drp ophthalmic (eye) PRN PRN 06/20/18 Unknown History ITCHY acetaminophen 325 mg tablet 650 mg (2 x 325 mg) PO Q6H PRN PRN 06/24/22 Unknown Rx (Tylenol) Pain Score 1-10/Temp > 100.7 F #0 tabs escitalopram oxalate 20 mg tablet 20 mg PO DAILY 01/05 Unknown History (Lexapro) solifenacin 10 mg tablet 10 mg PO QDAY 08/03/24 Unkno wn History Allergy/AdvReac Type Severity Reaction Status Date / Time cigarette smoke Allergy Mild BURNING Verified 11/06/25 11:38 LUNGS Seasonal Allergies: Uncoded Allergy Mild SNEEZING Verified 11/06/25 11:38 Family History Other No family history of disorders Surgical History History of strabismus surgery History of cholecystectomy H/O inguinal hernia repair benign breast lump, impacted milk gland H/O tubal ligation Social History household members: spouse housing: house current occupational status: retired pets and animals: Yes pets and animals: cat(s) Smoking Status: Former smoker quit date: 11/28/71 pack-years: 8 second hand exposure: No alcohol intake: current substance use type: other Addt'l Information Additional Findings: >4 METS Recommendation Anesthesia Recommendation Anesthesia recommendation: OPTIMIZED for anesthesia
[2025-11-08] VITALS (7 sets, daily range): BP systolic 96–102; BP diastolic 41–63; PULSE 60–67; RESP 14–16; TEMP 36.2–36.7; O2SAT 93–97; BMI 28.8
--- NOTE | 2025-11-08 07:58 | PCM.PRE.AN2 ---
ASA Classification* ASA Classification ASA Classification: 2 Assessment & Plan Anesthesia* Anesthesia Assessment Anesthesia Assessment: Discussed sedation and/or anesthesia options, risks, benefits, and alternatives with patient/parents/legal guardian/POA. Questions invited. The patient/parents/legal guardian/POA seems to understand and agrees to proceed with anesthesia plan. Reviewed the physical assessment, medical history, allergy history and patient home medications list prior to surgery/procedure/anesthetic and documented any changes. Performed airway and anesthesia risk assessments. Anesthesia Type Anesthesia Type: MAC Anesthesia Focused Assessment* Airway Assessment Mouth opens: >3 cm Mallampati Score: II Labs Anesthesia Preop lab: CBC WBC, (4.4-11.0) 5.4 K/mm3 01/04/23, 10:39 RBC, (4.2-5.4) 4.45 M/mm3 01/04/23, 10:39 Hgb, (12.0-15.0) 14.2 g/dL 01/04/23, 10:39 Hct, (37-47) 41.7 % 01/04/23, 10:39 Plt Count, (150-450) 316 K/mm3 01/04/23, 10:39 CHEMISTRY Potassium, (3.5-5.1) 3.9 mmol/L 01/04/23, 10:39 Sodium, (136-145) 139 mmol/L 01/04/23, 10:39 BUN, (7-18) 15 mg/dL 01/04/23, 10:39 Creatinine, (0.55-1.02) 0.78 mg/dL 01/04/23, 10:39 Glucose, (74-106) 108 mg/dL H 01/04/23, 10:39 TSH, (0.358-3.74) 2.31 uIU/mL 09/30/21, 13:20 COAG Pre-Assessment Diagnosis/Proposed Procedure Planned Operative Procedure(s): EGD Anesthesia History 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 When Was Last Pacemaker Check QUESTION #4 FULL TEXT: You/Your Family Experience fever (hyperthermia) with Anesthesia Last Oral Intake Last Oral intake: Last Oral Intake NPO since Meds taken in AM with sips of water? 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 Female Yes 11/06/25 11:43 HX of Motion Sickness No 11/06/25 11:43 HX of N/V After Surgery Yes 11/06/25 11:43 Non-Smoker Yes 11/06/25 11:43 Duration of Surgery greater No 11/06/25 11:43 than 60 minutes Number of Risk Factors 3 11/06/25 11:43 PONV Score Moderate Risk 11/06/25 11:43 Height & Weight Height & Weight: Anesthesia: Height & Weight Height 5 ft 6 in 09/25/25 13:18 Respiratory Assessment Respiratory Assessment - cooling machine operator: Respiratory Tract Infection Hx - cooling machine operator Hx Respiratory Tract Infection No 11/06/25 11:43 STOP Sleep Apnea STOP Sleep Apnea - cooling machine operator: STOP Sleep Apnea - cooling machine operator Hx Hypertension Yes: CONTROLLED WITH MEDS 11/06/25 11:43 Hx Sleep Apnea Yes 11/06/25 11:43 CPAP Yes 11/06/25 11:43 BIPAP No 11/06/25 11:43 Do you snore loudly (louder than talking or can be heard Do you often feel tired/ fatigued/ sleepy during daytime? Has anyone observed you stop breathing during sleep? STOP Results Positive 11/06/25 11:43 QUESTION #5 FULL TEXT : Do you snore loudly (louder than talking or can be heard through closed doors)? 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 Specify any problems Hx of Preganancy in last 3 No 11/06/25 11:43 Months Nurse Filling Out Transfusion [email or web address] 11/06/25 11:43 & Questions: Date: 11/06/25 11/06/25 11:43 Time: 11:46 11/06/25 11:43 Patient unable to answer at this time (ie. 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 machine operator Hx Now Gestational Age (in weeks): EDC: Hx Hx Para Hx Section SAB No 01/05/23 11:20 Does the father of the baby or his family experience fever w Father of the baby Malignant Hypertension history comment Active Medications Active Medications: Current Medications Generic Name Dose Route Start Last Admin Trade Name Freq PRN Reason Stop Dose Admin Lactated Ringer's 1,000 mls @ 15 mls/hr 11/08/25 07:45 IV .Q48H AVA PFSH Medical History Anxiety Wears glasses Post-menopausal Alcohol use Bladder disease Anemia Former smoker CPAP (continuous positive airway pressure) dependence Leg cramps Hypertension Depression Vitamin D deficiency Asthma Menieres disease Internal hemorrhoids GERD (gastroesophageal reflux disease) External hemorrhoids Dysthymic disorder Allergic rhinitis Acne rosacea Home Medications ?Medication ?Instructions ?Recorded ?Last Taken ?Type albuterol sulfate 90 mcg/actuation 2 puff inhalation Q4H PRN SOB 06/15/18 Unknown History aerosol inhaler (Proventil HFA) azelastine 137 mcg (0.1 %) nasal 1 spray intranasal PRN PRN 06/15/18 Unknown History spray Congestion bupropion HCl 150 mg tablet,12 hr 150 mg PO QDAY 06/15/18 Unknown History sustained-release (Wellbutrin SR) clobetasol 0.05 % topical cream 1 applic topical BID PRN Itching 06/15/18 Unknown History (Temovate) conjugated estrogens 0.625 mg/gram 0.625 mg vaginal QODAY 06/15/18 Unknown History vaginal cream (Premarin) diclofenac sodium 1 % topical gel 2 g topical DAILY PRN Pain 06/15/18 Unknown History (Voltaren) epinephrine 0.3 mg/0.3 mL 0.3 mg IM Q10-15M PRN Allergic 06/15/18 Unknown History injection, auto-injector (EpiPen) Reaction fexofenadine 180 mg tablet 180 mg PO QDAY PRN allergy symptoms 06/15/18 Unknown History (Vivi Allergy) fluticasone propionate 50 2 spray intranasal QDAY PRN 06/15/18 Unknown History mcg/actuation nasal allergy symptoms spray,suspension (Flonase Allergy Relief) meclizine 12.5 mg tablet 12.5 mg PO TID PRN Dizziness 06/15/18 Unknown History mometasone-formoterol HFA 100 2 puff inhalation Q12H PRN 06/15/18 Unknown History mcg-5 mcg/actuation aerosol shortness of breath inhaler (Dulera) omeprazole 20 mg capsule,delayed 20 mg PO QDAY 06/15/18 01/07/23 History release phenazopyridine 200 mg tablet 200 mg PO TID PRN URINARY SYMPTOMS 06/15/18 Unknown History (Pyridium) trazodone 50 mg tablet 50 mg PO QHS 06/15/18 Unknown History triamterene 75 1 tab PO QDAY 06/15/18 Unknown History mg-hydrochlorothiazide 50 mg tablet (Maxzide) olopatadine 0.1 % eye drops 1 drp ophthalmic (eye) PRN PRN 06/20/18 Unknown History ITCHY acetaminophen 325 mg tablet 650 mg (2 x 325 mg) PO Q6H PRN PRN 06/24/22 Unknown Rx (Tylenol) Pain Score 1-10/Temp > 100.7 F #0 tabs escitalopram oxalate 20 mg tablet 20 mg PO DAILY 01/05/23 Unknown History (Lexapro) solifenacin 10 mg tablet 10 mg PO QDAY 08/03/24 Unknown History Allergy/AdvReac Type Severity Reaction Status Date / Time cigarette smoke Allergy Mild BURNING Verified 11/08/25 07:58 LUNGS Seasonal Allergies: Uncoded Allergy Mild SNEEZING Verified 11/08/25 07:58 Family History Other No family history of disorders Surgical History History of strabismus surgery History of cholecystectomy H/O inguinal hernia repair benign breast lump, impacted milk gland H/O tubal ligation Social History household members: spouse housing: house current occupational status: retired pets and animals: Yes pets and animals: cat(s) Smoking Status: Former smoker quit date: 11/28/71 pack-years: 8 second hand exposure: No alcohol intake: current substance use type: other Review of Systems (Anesthesia) ROS Narrative System reviewed and no additional complaints, except as documented.
[2025-11-08] MEDS: Lactated Ringers 1,000 ML 15 ML IV (08:07)
--- NOTE | 2025-11-08 08:19 | PCM.HP.BLA ---
History and Physical Date of Admission: 11/08/25 Intake Vital Signs 11/02/2409:01 09/25/2513:18 Height 5 ft 6 in 5 ft 6 in Weight: 181 lb BMI 29.2 BP 109/69 Blood Pressure Location Rt brachial Position Sitting Respiration 17 Pulse 60 Pulse Source Monitor Pulse Oximetry (%) 98 Oxygen Delivery Method room air Intake Visit Reasons: Esophagogastroduodenoscopy Chief Complaint: egd Is patient in pain?: No Allergies cigarette smoke Allergy (Mild, Verified 09/25/25 13:19) BURNING LUNGS Seasonal Allergies: Uncoded Allergy (Mild, Verified 09/25/25 13:19) SNEEZING Medications ?Medication ?Instructions ?Recorded ?Confirmed ?Type albuterol sulfate 90 mcg/actuation 2 puff inhalation Q4H PRN SOB 06/15/18 09/25/25 History aerosol inhaler (Proventil HFA) azelastine 137 mcg (0.1 %) nasal 1 spray intranasal PRN PRN 06/15/18 09/25/25 History spray Congestion bupropion HCl 150 mg tablet,12 hr 150 mg PO QDAY 06/15/18 09/25/25 History sustained-release (Wellbutrin SR) clobetasol 0.05 % topical cream 1 applic topical BID PRN Itching 06/15/18 09/25/25 History (Temovate) conjugated estrogens 0.625 mg/gram 0.625 mg vaginal .QOD 06/15/18 09/25/25 History vaginal cream (Premarin) dextromethorphan polistirex 30 10 ml PO PRN PRN Cough 06/15/18 09/25/25 History mg/5 mL oral susp ext.release 12hr (Delsym 12 hour) diclofenac sodium 1 % topical gel 2 g topical .qid PRN Pain 06/15/18 09/25/25 History (Voltaren) epinephrine 0.3 mg/0.3 mL 0.3 mg IM Q10-15M PRN Allergic 06/15/18 09/25/25 History injection, auto-injector (EpiPen) Reaction fexofenadine 180 mg tablet 180 mg PO QDAY 06/15/18 09/25/25 History (Vivi Allergy) fluticasone propionate 50 2 spray intranasal QDAY 06/15/18 09/25/25 History mcg/actuation nasal spray,suspension (Flonase Allergy Relief) meclizine 12.5 mg tablet 12.5 mg PO TID PRN Dizziness 06/15/18 09/25/25 History mometasone-formoterol HFA 100 2 puff inhalation Q12H 06/15/18 09/25/25 History mcg-5 mcg/actuation aerosol inhaler (Dulera) omeprazole 20 mg capsule,delayed 20 mg PO QDAY 06/15/18 09/25/25 History release phenazopyridine 200 mg tablet 200 mg PO TID PRN URINARY SYMPTOMS 06/15/18 09/25/25 History (Pyridium) trazodone 50 mg tablet 50 mg PO QHS 06/15/18 09/25/25 History triamterene 75 1 tab PO QDAY 06/15/18 09/25/25 History mg-hydrochlorothiazide 50 mg tablet (Maxzide) olopatadine 0.1 % eye drops 1 drp ophthalmic (eye) PRN PRN 06/20/18 09/25/25 History ITCHY acetaminophen 325 mg tablet 650 mg (2 x 325 mg) PO Q6H PRN PRN 06/24/22 09/25/25 Rx (Tylenol) Pain Score 1-10/Temp > 100.7 F #0 tabs escitalopram oxalate 20 mg tablet 20 mg PO DAILY 01/05/23 09/25/25 History (Lexapro) solifenacin 10 mg tablet 10 mg PO QDAY 08/03/24 09/25/25 History Have you fallen in the past year?: No PFSH Medical History (Updated 09/25/25 @ 13:[address] Arnoldo Nath MD) Wears glasses Post-menopausal Alcohol use Bladder disease Anemia Former smoker CPAP (continuous positive airway pressure) dependence Leg cramps Hypertension Depression Vitamin D deficiency Asthma Menieres disease Internal hemorrhoids GERD (gastroesophageal reflux disease) External hemorrhoids Dysthymic disorder Allergic rhinitis Acne rosacea Surgical History History of strabismus surgery History of cholecystectomy H/O inguinal hernia repair benign breast lump, impacted milk gland H/O tubal ligation Family History Other No family history of disorders Social History household members: spouse housing: house current occupational status: retired pets and animals: Yes pets and animals: cat(s) Smoking Status: Former smoker quit date: 11/28/71 pack-years: 8 second hand exposure: No alcohol intake: current substance use type: other HPI HPI HPI: Patient is a 80-year-old female here with dysphagia. She has had issues with this in the past. I performed an EGD in 2021 and she had food stuck in 2022 and had a repeat EGD with food advancement that did not show any stricture. She says she has been doing well for the last 2 years but then started having dysphagia again recently. She says that she was eating Pasta and it got stuck in her esophagus and took a while to empty into her stomach. ROS General General: No weight change, appetite, fatigue, colon cancer, breast cancer or weakness HEENT HEENT: Yes difficulty swallowing and eye surgery; No eye injury, swollen glands or hoarseness Additional Details: food gets stuck Endo Endocrine: No thyroid disease, diabetes mellitus, thyroid cancer, Hair loss, heat intolerance or cold intolerance Skin Skin: No rash or changing moles Musc Musculoskeletal: No back problems, arthritis, rheumatoid arthritis, gout or joint pain Cardio Cardiovascular: No murmur, pacemaker, heart disease, atrial fibrillation, high blood pressure, heart attack, heart stent, palpitations, shortness of breath with exertion or chest pain Psych Psychiatric: Yes depression and anxiety; No hearing voices Resp Respiratory: No shortness of breath, Yes sleep apnea, No cough, No COPD, Yes asthma, No emphysema and No wheezing Gastro Gastrointestinal: Yes abdominal pain, No nausea or vomiting, No diarrhea, No constipation, No blood in stool, Yes acid reflux, No hemorrhoids, No ulcers, No gallbladder problem and No black,tarry stools Steven Hematologic: No blood thinners, No blood disorders, No bleeding, No anemia and No blood clots Neuro Neurologic: No system reviewed and no additional complaints, except as documented, No as per HPI, No abnormal gait, No abnormal hearing, No abnormal movements, No abnormal speech, No behavioral changes, No burning sensations, No confusion, No convulsions, No disequilibrium, No dizziness, No localized weakness, No frequent falls, No headache(s), No lack of coordination, No loss of vision, No memory loss, No numbness, No other visual disturbances, No radicular pain, No restless legs, No sensory deficit, No syncope, No tingling, No tremor(s), No weakness and No other Exam Const General: cooperative Orientation: alert and oriented x3 HENMT Head: normal to inspection Neck Neck: normal visual inspection and full ROM Chest Chest palpation & inspection: normal inspection of the chest Resp Effort & Inspection: normal respiratory effort Auscultation: clear to auscultation bilaterally Cardio Rate: regular rate Rhythm: regular rhythm GI Inspection: non-distended Palpation: soft and nontender Skin General: no rashes or lesions noted Neuro General: patient alert and patient oriented x3 Extrem General: full ROM Psych Appearance: grossly normal Mental Status: mental status grossly normal Assessment and Plan Assessment and Plan (1) GERD (gastroesophageal reflux disease): Status: Acute Comment: MOSTLY CONTROLLED WITH MED (2) Dysphagia: Status: Acute Orders: Orders EGD Today Plan Patient has dysphagia and chronic acid reflux. I discussed performing EGD with possible dilation. I explained endoscopy in detail to the patient. I explained the risks including but not limited to stroke or heart attack with anesthesia, perforation of the GI tract, bleeding, infection. I explained that any of these could necessitate further emergency surgery. The patient understands and all questions were answered sufficiently. The patient wishes to proceed with procedure. I discussed the increased risk of perforation and bleeding with dilation. If the EGD is normal then I will schedule her for manometry. We may also do biopsies of the midesophagus for eosinophilic esophagitis. Arnoldo Nath MD Pager: [facility] [address] [place] [address], [address] [place] [address] Office: I have examined the patient and the H&P has been reviewed. There are no clinical changes since date of exam.
--- NOTE | 2025-11-08 08:43 | OP.EGD_ITS ---
Patient Name: Alea Dickens Procedure Date: 11/08/2025 8:20 AM Date of : 1945 Age: 80 Procedure: Upper GI endoscopy Indications: Dysphagia Providers: Arnoldo Nath MD Referring MD: Arnoldo Nath MD Medicines: Propofol per Anesthesia Patient Profile: This is a 80 year old female. Refer to note in patient chart for documentation of history and physical. Patient has symptoms of chronic dysphagia. Complications: No immediate complications. Estimated blood loss: Minimal. Procedure: Pre-Anesthesia Assessment: - Prior to the procedure, a History and Physical was performed, and patient medications and allergies were reviewed. The patient's tolerance of previous anesthesia was also reviewed. The risks and benefits of the procedure and the sedation options and risks were discussed with the patient. All questions were answered, and informed consent was obtained. Prior Anticoagulants: The patient has taken no anticoagulant or antiplatelet agents. After reviewing the risks and benefits, the patient was deemed in satisfactory condition to undergo the procedure. After obtaining informed consent, the endoscope was passed under direct vision. Throughout the procedure, the patient's blood pressure, pulse, and oxygen saturations were monitored continuously. The gastroscope was introduced through the mouth, and advanced to the third part of duodenum. The upper GI endoscopy was accomplished without difficulty. The patient tolerated the procedure well. Scope In: 8:35:13 AM Scope Out: 8:39:15 AM Total Procedure Duration Time 0 hours 4 minutes 2 seconds Findings: The lumen of the esophagus was severely dilated. The stomach was normal. The examined duodenum was normal. Impression: - Dilation in the entire esophagus. - Normal stomach. - Normal examined duodenum. - No specimens collected. Recommendation: - Discharge patient to home. - Resume previous diet. - Continue present medications. - Perform ambulatory esophageal manometry at appointment to be scheduled. Procedure Code(s): --- Professional --- 45464, Esophagogastroduodenoscopy, flexible, transoral; diagnostic, including collection of specimen(s) by brushing or washing, when performed (separate procedure) Diagnosis Code(s): --- Professional --- K22.89, Other specified disease of esophagus R13.10, Dysphagia, unspecified CPT copyright 2021 [employer]. All rights reserved. The codes documented in this report are preliminary and upon extraction operator review may be revised to meet current compliance requirements. Arnoldo Nath MD 11/08/2025 8:42:44 AM This report has been signed electronically. Number of Addenda: 0 Note Initiated On: 11/08/2025 8:20 AM
--- NOTE | 2025-11-08 08:43 | OP.PROVAT_ITS ---
11/08/2025 Iliana Thomas [address] [place] [address] Re : Upper GI endoscopy procedure for Alea Dickens Dear Dr. Thomas This procedure was performed on Saturday, November 08, 2025. My impressions and recommendations are as follows: Impressions : - Dilation in the entire esophagus. - Normal stomach. - Normal examined duodenum. - No specimens collected. Recommendations : - Discharge patient to home. - Resume previous diet. - Continue present medications. - Perform ambulatory esophageal manometry at appointment to be scheduled. My findings are described in the full procedure note, which is enclosed. If I can be of further assistance, please feel free to contact me at Doctor phone number(s): , Work: . Sincerely, Arnoldo Nath MD 11/08/2025 8:42:44 AM This report has been signed electronically.
--- NOTE | 2025-11-08 08:47 | PCM.POST.ANE ---
Anesthesia: Postop Eval I Current Vital Signs Temperature: 97.1 F Pulse Rate: 64 Blood Pressure: 98/41 Respiratory Rate: 16 Pulse Ox: 95 Oxygen Delivery Method: Room Air Assessment Airway patent: Yes Spontaneous unlabored respirations: Yes Mental status: Awake and Calm nausea: No Vomiting: No Anesthesia Complication: No Fluid Hydration Crystalloid volume administer (ml): 400 Total IV fluid infused: 400 Progress Note Anesthesia document: Postop Eval 1 completed: Yes
--- NOTE | 2025-11-08 09:11 | PCM.POSTANE2 ---
Anesthesia Postop Eval I Sum Postop Eval Completion status Anesthesia document: Postop Eval 1 completed: Yes Anesthesia Postop Eval I Summary Anesthesia Postop Eval I Summary: Anesthesia Postop Eval I: Assessment Summary Airway patent Yes 11/08/25 08:48 [email or web address] Spontaneous unlabored Yes 11/08/25 08:48 [email or web address] respirations Mental status Awake,Calm 11/08/25 08:48 [email or web address] nausea No 11/08/25 08:48 [email or web address] Vomiting No 11/08/25 08:48 [email or web address] Anesthesia Postop Eval I: Fluid Summary Crystalloid volume administer 400 11/08/25 08:48 [email or web address] (ml) Colloids volume administered ( ml) Blood Product volume administered (ml) Total IV fluid infused 400 11/08/25 08:48 [email or web address] Anesthesia Postop Eval I: Summary Notes Anesthesia Complication No 11/08/25 08:48 [email or web address] Anesthesia Complication Comment: Post-operative progress note Anesthesia: Postop Eval II Evaluation Mental status: Awake Pain Level: 0 nausea: No Vomiting: No
== END 2025-11-08 09:17 | disposition home or self-care (01) ==
LOC: EN 07:39 → AC 07:40
PROVIDERS: PCP Internal Medicine; Referring Provider Surgery; Visit Provider Surgery
PROC: 0DJ08ZZ Inspection of Upper Intestinal Tract, Via Natural or Artificial Opening Endoscopic (ICD-10-PCS; CPT 43235; principal; 2025-11-08 08:25)
DX: R13.10 Dysphagia, unspecified (principal); K21.9 Gastro-esophageal reflux disease without esophagitis; K22.89 Other specified disease of esophagus; Z87.891 Personal history of nicotine dependence; I10 Essential (primary) hypertension; F32.A Depression, unspecified; Z79.899 Other long term (current) drug therapy; J45.909 Unspecified asthma, uncomplicated; Z79.51 Long term (current) use of inhaled steroids; Z90.49 Acquired absence of other specified parts of digestive tract; Z98.51 Tubal ligation status
CPT/HCPCS: 43235; J2405